=== PATIENT | male | born 1955 | race Caucasian/White ===

== ENCOUNTER → 2018-09-10 06:27 | Outpatient (CLI) | payer OTHER, SELFPAY ==
[2018-09-10 07:40] LABS: Cholesterol 219 mg/dL (200); Glucose 88 mg/dL (74-106); High Density Lipoprotein 41 mg/dL; Triglycerides 227 mg/dL; Very Low Density Lipoprotein 45 mg/dL (5-40)
== END ==
PROVIDERS: Family Provider Family Medicine; PCP Family Medicine; Referring Provider Family Medicine; Visit Provider Family Medicine
DX: Z13.1 Encounter for screening for diabetes mellitus (principal); Z13.220 Encounter for screening for lipoid disorders
CPT/HCPCS: 36415; 80061; 82947

== ENCOUNTER → 2020-08-27 06:21 | Outpatient (CLI) | payer OTHER, SELFPAY ==
[2020-08-27 08:02] LABS: Cholesterol 201 mg/dL (200); Glucose 81 mg/dL (74-106); High Density Lipoprotein 53 mg/dL; Triglycerides 164 mg/dL; Very Low Density Lipoprotein 33 mg/dL (5-40)
== END ==
PROVIDERS: PCP Family Medicine; Referring Provider Family Medicine; Visit Provider Family Medicine
DX: Z00.00 Encounter for general adult medical examination without abnormal findings (principal); Z12.5 Encounter for screening for malignant neoplasm of prostate
CPT/HCPCS: 36415; 80061; 82947; 84153; G0103

== ENCOUNTER → 2020-11-02 06:48 | Outpatient (CLI) | payer OTHER, SELFPAY ==
[2020-11-02 08:59] LABS: PSA,Total- Diagnostic 4.83 ng/mL (0.0-4.0)
== END ==
PROVIDERS: PCP Family Medicine; Referring Provider Urology; Visit Provider Urology
DX: R97.20 Elevated prostate specific antigen [PSA] (principal)
CPT/HCPCS: 36415; 84153

== ENCOUNTER → 2021-05-03 06:55 | Outpatient (CLI) | payer OTHER, SELFPAY ==
[2021-05-03 08:13] LABS: PSA,Total- Diagnostic 6.59 ng/mL (0.0-4.0)
== END ==
PROVIDERS: PCP Family Medicine; Referring Provider Urology; Visit Provider Urology
DX: R97.20 Elevated prostate specific antigen [PSA] (principal)
CPT/HCPCS: 36415; 84153

== ENCOUNTER → 2021-07-14 12:14 | Outpatient (CLI) | payer OTHER, SELFPAY ==
--- NOTE | 2021-07-14 08:00 | PROSBIL_PTH ---
PATIENT: ROBERT AMARAL LOC: [facility] U#:[id number] AGE/SX: 69/M ROOM: RE07/14/[address]: Dr. Jose L Alvarez MD : 1955 BED: DIS: SPEC #: [id number] RECD: 07/14/21 10:40 STATUS: CHANDNI PEE #: [id number] ASHELY: 07/14/21 08:[address]: Jose L Alvarez DEPT: SURGICAL PATHOLOGY RECD BY: Love Stahl ENTERED: 07/14/21 13:15 SP TYPE: PROST BX LANEY DR: Dr. Cliff Gates MD Tissues: A - PROSTATE RIGHT B - PROSTATE RIGHT C - PROSTATE RIGHT D - PROSTATE LEFT E - PROSTATE LEFT F - PROSTATE LEFT Procedures: PROSTATE BX HEADER OPERATION: Prostate biopsy PRE-OP DIAGNOSIS: R97.20 TISSUE SUBMITTED: A - Right apex, B - Right mid, C - Right base, D - Left apex, E - Left mid, F - Left base MICROSCOPIC DIAGNOSIS A. Right prostate, apex, core biopsy: Prostatic adenocarcinoma. [place] grade: 3+4=7 Number of cores involved: 2/2 Proportion of tissue involved: ~75% Perineural invasion: present, focal Greatest tumor length: 0.8 cm B. Right prostate, mid, core biopsy: Prostatic adenocarcinoma. [place] grade: 3+3=6 Number of cores involved: 2/2 Proportion of tissue involved: 30% Perineural invasion: Not identified. Greatest tumor length: 0.7 cm C. Right prostate, base, core biopsy: Prostatic adenocarcinoma. [place] grade: 3+3=6 Number of cores involved: 2/2 Proportion of tissue involved: 30% Perineural invasion: Not identified. Greatest tumor length: 0.6 cm D. Left prostate, apex, core biopsy: Prostatic tissue, negative for malignancy. E. Left prostate, mid, core biopsy: Prostatic tissue, negative for malignancy. F. Left prostate, base, core biopsy: Prostatic tissue, negative for malignancy. SJ:ang 07/15/2021 COMMENT Case has been reviewed in consultation with Dr. Donovan who concurs with the above diagnosis. IDC:AM MICROSCOPIC DESCRIPTION Slides are reviewed. GROSS DESCRIPTION A - Received is one container designated prostate, right apex. The specimen consists of two elongated fragments of light moya-white soft tissue each measuring 1.5 cm in length and 0.1 cm in diameter. The specimen is totally submitted in one cassette. B - Received is one container designated prostate, right mid. The specimen consists of two elongated fragments of light moya-white soft tissue each measuring 1.5 cm in length and 0.1 cm in diameter. The specimen is totally submitted in one cassette. C - Received is one container designated prostate, right base. The specimen consists of two elongated fragments of light moya-white soft tissue each measuring 1.5 cm in length and 0.1 cm in diameter. The specimen is totally submitted in one cassette. D - Received is one container designated prostate, left apex. The specimen consists of one elongated fragment of light moya-white soft tissue measuring 0.8 cm in length and 0.1 cm in diameter. The specimen is totally submitted in one cassette. E - Received is one container designated prostate, left mid. The specimen consists of two elongated fragments of light moya-white soft tissue each measuring 1.5 cm in length and 0.1 cm in diameter. The specimen is totally submitted in one cassette. F - Received is one container designated prostate, left base. The specimen consists of two elongated fragments of light moya-white soft tissue each measuring 1 cm in length and 0.1 cm in diameter. The specimen is totally submitted in one cassette. / AM:ang 07/14/21 TC:0 [facility]: [id number] [phone]
== END ==
PROVIDERS: PCP Family Medicine; Referring Provider Urology; Visit Provider Urology
DX: R97.20 Elevated prostate specific antigen [PSA] (principal)
CPT/HCPCS: 88305; G0416

== ENCOUNTER 2021-08-19 06:00 | Day surgery (SDC) | payer OTHER, SELFPAY ==
--- NOTE | 2021-08-15 14:00 | EKG12_ITS ---
Test Reason : PRE OP Blood Pressure : / mmHG Vent. Rate : 081 BPM Atrial Rate : 081 BPM P-R Int : 144 ms QRS Dur : 094 ms QT Int : 360 ms P-R-T Axes : 035 -15 058 degrees QTc Int : 418 ms Normal sinus rhythm Low voltage QRS Inferior infarct , age undetermined Abnormal ECG Confirmed by RK ROSS, ALBERTO ([id number]), editorial specialist EMMANUELLE ALBRIGHT ([id number]) on 08/16/2021 9:27:22 AM Referred By: Jose L Alvarez Confirmed By:ALBERTO BECKMAN MD
[2021-08-15 15:07] LABS: Hematocrit 46.7 % (40-54); Hemoglobin 15.8 g/dL (13.0-16.5); Mean Corp Hgb Conc 33.8 g/dL (32-36); Mean Corpuscular Hgb 31.7 pg (27.0-32.0); Mean Corpuscular Volume 93.6 fL (80-94); Mean Platelet Vol. 10.9 fl (6.2-12.0); Platelet Count 208 K/mm3 (150-450); RBC Distribution Width CV 12.5 % (11.6-14.6); RBC Distribution Width SD 43.1 fl (35.1-43.9); Red Blood Count 4.99 M/mm3 (4.6-6.2); White Blood Count 6.6 K/mm3 (4.4-11.0)
[2021-08-19] VITALS (7 sets, daily range): BP systolic 87–113; BP diastolic 53–86; PULSE 67–77; RESP 16–18; TEMP 36.2–36.9; O2SAT 93–96; BMI 24.3
--- NOTE | 2021-08-19 07:30 | PROST_PTH ---
PATIENT: ORBERT AMARAL [place] [facility] [place][id number] AGE/SX: 65/M ROOM: RE08/19/[address]: Dr. Jose L Alvarez MD : 1955 BED: DIS: 08/19/2021 SPEC #: [id number] RECD: 08/19/21 13:04 STATUS: CHANDNI PEE #: [id number] ASHELY: 08/19/21 07:[address]: Jose L Alvarez DEPT: SURGICAL PATHOLOGY RECD BY: Love Stahl ENTERED: 08/19/21 13:25 SP TYPE: PROSTATE OTHR DR: Dr. Cliff Gates MD Tissues: A - Soft tissues, NOS B - Lymph node of pelvis, NOS C - Lymph node of pelvis, NOS D - Prostate, NOS Procedures: Surgery Specimen Level IV Surgery Specimen Level V Surgery Specimen Level HEADER OPERATION: Lap robotic radical prostatectomy PRE-OP DIAGNOSIS: Malignant neoplasm of prostate, elevated PSA TISSUE SUBMITTED: A ? Fat over prostate, B ? Left lymph node bundle, C ? Right lymph node bundle, D - Prostate MICROSCOPIC DIAGNOSIS A. Fat over prostate: Negative for carcinoma. B. Left lymph node bundle, biopsy: One lymph node, negative for carcinoma. C. Right lymph node bundle, biopsy: One lymph node, negative for carcinoma. D. Prostate, radical prostatectomy: Prostatic adenocarcinoma. See cancer summary in the comment section. SJ:ang 08/23/2021 COMMENT PROSTATE CANCER (RADICAL) SUMMARY: Procedure: Radical Prostatectomy Prostate Size: Weight: 53.2 gm Size: 4 cm transversely, 3.5 cm anterior-posteriorly and 4.5 cm craniocaudally Histologic type: Adenocarcinoma Histologic grade: Grade group 2 ([place] score 3+4=7) Tumor Quantitation: Estimated percentage of prostate involved by tumor: ~10% Tumor size: Tumor involves both right and left lobes. Tumor in the right lobe involves apical, mid and basal portion prostate and measures approximately 1.6 x 1.1 x 0.9 cm. Tumor in the left lobe involves apical portion of the prostate and measures approximately 1.5 x 1.2 x 1.2 cm and present in discontinuous manner. Extraprostatic Extension: Not identified Urinary Bladder Neck Invasion: Not identified Seminal Vesicle Invasion: Not identified Lymphvascular Invasion: Not identified Perineural Invasion: Present Margins: Margins uninvolved by invasive carcinoma. Regional Lymph Nodes: Number of lymph nodes involved: 0 Number of lymph nodes examined: 2 Treatment Effect: No known presurgical therapy. Additional Pathologic Findings: - Focal high-grade prostatic intraepithelial neoplasia (HGPIN). - Chronic inflammation. - Benign prostatic hyperplasia. PATHOLOGIC STAGE: pT2 pN0 pMx The above summary is in compliance with [employer] [place] [employer] (CAP) Cancer Protocols Checklist and [place] Joint Committee on Cancer (AJCC), Staging Manual, 8th Ed. Please make reference to previous specimen ([id number]) right prostate, apex, mid and base with diagnosis of ?adenocarcinoma.? MICROSCOPIC DESCRIPTION Slides are reviewed. GROSS DESCRIPTION A - Received in fixative is one container labeled with the patient's name and designated fat over prostate. The specimen consists of an irregular piece of adipose tissue measuring 3.5 x 3 x 1 cm. No mass lesion is identified. Maintenance Person sections are submitted in one cassette. B - Received in fixative is one container labeled with the patient's name and designated left lymph node bundle. The specimen consists of a piece of yellow adipose tissue containing a nodule measuring 2 x 1.5 x 0.5 cm. One nodule consistent with lymph node is noted measuring 1 cm in greatest dimension. The specimen is bisected and submitted entirely in one cassette. C - Received in fixative is one container labeled with the patient's name and designated right lymph node bundle. The specimen consists of a piece of yellow adipose tissue containing a nodule measuring 3 x 1.5 x 0.5 cm. One nodule consistent with lymph node is noted measuring 1.5 cm in greatest dimension. The specimen is bisected and submitted entirely in one cassette. D - Received in fixative is one container labeled with the patient's name and designated prostate. The specimen consists of a radical prostatectomy specimen consisting of prostate and bilateral seminal vesicles weighing 53.2 gm. The prostate measures 4 cm transversely, 3.5 cm anterior-posteriorly and 4.5 cm craniocaudally. The right seminal vesicle measures 2.5 x 1.5 x 1 cm and right vas deferens measures 2 cm in length and 0.5 cm in diameter. The left seminal vesicle measures 3 x 1.5 x 1 cm and the left vas deferens measures 2 cm in length and 0.5 cm in diameter. The prostate is inked as follows: anterior margin - yellow, posterior margin - black, right lateral surface - blue, left lateral surface - green. The bilateral seminal vesicles and vas deferens are inked as follows: posterior surface - black, anterior surface right seminal vesicle and vas deferens - blue and anterior left seminal vesicle and vas deferens - green. Sections do not reveal any obvious mass lesion. Maintenance Person sections are submitted in 20 cassettes as follows: 1 - right seminal vesicle and vas deferens, 2 - left seminal vesicle and vas deferens, 3 - apical margin prostate, enface, 4 & 5 - basal margin prostate, enface, 6-10 - apical portion prostate, 11-14 - middle portion prostate, 15-20 - basal portion prostate. / SJ:rg 08/22/21 TC:0 CPT: 14933, 92074 x2, 75038
[2021-08-19] MEDS: Cefazolin 2 GM in 0.9% Normal Saline 100 ML IV (07:40)
--- NOTE | 2021-08-19 07:42 | PCM.HP.STD ---
HPI - General HPI Narrative ROBERT AMARAL, is a 65 M who presents for radical prostatectomy for treatment of prostate cancer PFSH Medical History (Updated 08/19/21 @ 07:[address] Jose L Alvarez MD) Alcohol use Cancer CPAP (continuous positive airway pressure) dependence Former smoker History of diverticulitis Hx of vertigo Prostate disease Wears glasses Home Medications bimatoprost 1 drp LEFT EYE DAILY 08/12/21 [History Last Taken Unknown] multivitamin 1 cap PO DAILY 08/12/21 [History Last Taken Unknown] timolol 1 drp LEFT EYE BID 08/12/21 [History Last Taken Unknown] ciprofloxacin HCl [Cipro] 500 mg PO BID #20 tab 08/19/21 [Rx Last Taken Unknown] docusate sodium [Colace] 100 mg PO BID #20 cap 08/19/21 [Rx Last Taken Unknown] oxycodone-acetaminophen 1 tab PO Q6H PRN 7 Days #14 tab 08/19/21 [Rx Last Taken Unknown] Allergy/AdvReac Type Severity Reaction Status Date / Time Penicillins Allergy PT UNSURE Verified 08/12/21 09:10 OF REACTION Surgical History (Updated 08/12/21 @ 09:19 by Eliane Black) Hx of colonoscopy Hx of inguinal hernia repair Hx of inguinal hernia repair Social History Smoking Status: Former smoker Vital Signs Vital Signs Vital Signs: 08/19/21 06:25 Temperature 98.0 F Temperature Source Temporal Pulse Rate 68 Respiratory Rate 18 Respiratory Pattern Normal Blood Pressure 113/86 H Blood Pressure Mean 95 Blood Pressure Source Monitor Blood Pressure Position Sitting Blood Pressure Location Left Arm Pulse Ox 96 Oxygen Delivery Method Room Air Weight Weight: 76.9 kg Body Mass Index (BMI) 24.3 Results Lab / Micro Data Result Diagrams: 08/15/21 14:23
--- NOTE | 2021-08-19 07:43 | PCM.DC ---
Discharge Instructions Diet Discharge Diet: No restrictions Activity Discharge Activity: May Not Drive (while taking narcotic pain medications.) May resume sexual activity in: 6-8 weeks Lifting Restrictions: no lifting Dressing / Incision Call your doctor if your incision/area has: Continuous Slow Oozing, Sudden Increased Bleeding, Increased Pain/ Swelling, Increased Redness, Foul Smelling Discharge and Swelling at the incision site Call your doctor if you observe: Fever of 101 or Higher Cleanse incision/area with: Soap & Water and Keep Dressing Clean & Dry Catheter: [place] to leg bag and [place] to large bag Drain: Bradford Follow Up Care Please Follow Up With: Jose L Alvarez MD When: call for appt. Test Results: Test results from this visit will be discussed in further detail at your follow-up appointment, if applicable. Discharge Plan Admission Primary Reason for Your Visit: Radical Prostatectomy Attending Provider: Jose L Alvarez Primary Care Provider: Cliff Gates Instructions Patient Instructions: Radical Prostatectomy Dc Discharge Orders/Prescriptions Prescriptions: New ciprofloxacin HCl [Cipro] 500 mg tablet 500 mg PO BID Qty: 20 RF: 0 docusate sodium [Colace] 100 mg capsule 100 mg PO BID Qty: 20 RF: 0 oxycodone-acetaminophen 5-300 mg tablet 1 tab PO Q6H PRN (Reason: pain) 7 Days Qty: 14 RF: 0 Continued bimatoprost 0.03 % Drops 1 drp LEFT EYE DAILY RF: 0 timolol 0.25 % Drops 1 drp LEFT EYE BID RF: 0 multivitamin Capsule 1 cap PO DAILY RF: 0 Referrals / Follow Up: Jose L Alvarez MD [STAFF PHYSICIAN] - Cliff Gates MD [Primary Care Provider] - Disposition Disposition (needs filled in before D/C Order can be placed): Home, Self Care
[2021-08-19] MEDS: Bupivacaine Mpf 0.5% 30 ML VIAL (11:44)
--- NOTE | 2021-08-19 11:55 | PCM.OPRPT ---
Report of Operation Date of Procedure: 08/19/21 Pre-Operative Diagnosis: prostate cancer Post-Operative Diagnosis: same Surgery/Procedure Performed:: laparoscopic robotic assisted radical prostatectomy and bilateral pelvic lymph node dissection Description of Surgical Findings:: Patient presented to the hospital for treatment of his prostate cancer with radical prostatectomy. In the preoperative setting we discussed the options of management for his prostate cancer including active surveillance, radiation treatments, radioactive seeds, and radical robotic prostatectomy. We discussed the side effects of surgery including the potential to lose erections. We discussed the potential to have bladder control problems with stress incontinence which can be temporary or permanent. We discussed the risk of the surgery including the risk of general anesthetic, risk of bleeding, risk of infection, and risk of formation of hernia either incisional hernia or inguinal hernia. After long discussion with the patient the preoperative setting and also reviewed this in the preop area patient signed the consent form and we proceeded with a radical prostatectomy. Patient was taken back to the operating room he was identified, time out procedure was performed and he was placed supine on the table he underwent general anesthesia with intubation. The abdomen was shaved prepped and draped in usual sterile fashion as well as the penis and testicles. A 16 Cymraes catheter was placed into the bladder with clear return of urine. I then made an incision in the umbilicus and dissected down to the fascia advance a Veress needle into the peritoneal cavity and insufflated the peritoneal cavity with CO2 gas. I then placed a 12 mm trocar above the umbilicus. I then visualized the placement of the rest of the trochars, I placed a right arm robotic trocar, and air seal trocar, a suction port 5 mm trocar. And on the left side I placed 2 robotic arms. Once all the trochars were in placed the patient was put in steep Trendelenburg. And the robot was docked the arms were docked and then I placed the 0 degree camera through the robotic arm and also used a 30 degree camera during certain parts of the case. I used scissors in the right arm, prograsp in the third arm, and a bipolar in the second arm. Initial dissection was to free the sigmoid colon off the lateral wall this was done by meticulously dissecting off the peritoneum and the sigmoid colon off the left lateral wall. This then allowed the prograsp to retract the sigmoid colon out of the pelvis. I then went below the bladder and identified the vas deferens incised the peritoneum over the vas deferens and traced the vas deferens below the bladder to the prostate and identified the right and left vasa deferens. Below behind the vas deferens then the seminal vesicles were identified. I then dissected the seminal vesicle free using pinpoint electrocautery and then we identified the other seminal vesicle and then dissected this using pinpoint electrocautery I then elevated the vas deferens and several vesicles off the prostate and was able to sweep the Denonvilliers' fascia off the prostate posteriorly all the way up to the apex of the prostate. Working laterally I made sure I went as lateral as possible to sweep the Denonilliers' fascia off the posterior aspect of the prostate and worked my way back, I then transected the vas deferens and the left and right side the seminal vesicles were then dissected free. And then I pulled out of the pelvis. At this point the bladder was dropped creating the space of Retzius with the bladder on traction with the fourth arm. Using electrocautery I dissected in the anterior peritoneal fascia and then created the space of Retzius dissecting towards the prostate. The pelvic lymph node dissection was then performed both on the left and the right pelvic lymph nodes the nodes that were taken on the right side extended from the right iliac artery lateral pelvic sidewall up to the junction of the artery and the lymph nodes and down to the obturator nerve and then also below the impregnating tank operator nerve all the lymph nodes were removed during to remove those lymph nodes we used clips and electrocautery to control small blood vessels and also the control lymphatic. I then went to the left side and again did an extensive lymph node dissection starting of the left iliac artery extending the left iliac vein on the lateral sidewall down to the obturator nerve and the left side beyond the impregnating tank operator nerve down further behind it cleaning out all the lymphatic tissue all this tissue was sent off as a specimen we use clips and electrocautery during the dissection. At the end we cleaned out all the lymphatic tissue on the right pelvic wall and no lymphatic tissue in the left pelvic wall. The prostate was then cleaned of the fat over the prostate and the fourth arm was used to retract the bladder and place traction. I then identified the endopelvic fascia that was overlying the prostate on the right side I incised endopelvic fascia and wwept the levator muscles off the prostate all the way to the apex on the right side, I then worked my way anterior to the prostate then transected to the puboprostatic ligament and the underlying dorsal vein complex was not injured. I then went to the other side and identified the endopelvic fascia in the left side incised in a fashion the left side and swept the levator muscles off the prostate on the left side all the way up to the apex the puboprostatic ligament on the left side was then dissected and transected I then freed up the fascia overlying the dorsal vein complex. I then used the prograsp to encircled the dorsal vein complex with the prograsp and then switched over to the right and left needle driver manager and suture ligated the dorsal vein complex above the prograsp. The prograsp was then placed back in the bladder and put back on traction I then identified the junction between the bladder and the prostate and dissected down between the bladder and the prostate untilI came across the catheter we then dissected posteriorly to the bladder and prostate to free the prostate and the bladder off each other and the muscles between the bladder and the prostate was then cauterized to free up the bladder. I then went on top of the prostate and identified the endopelvic fascia on top of the prostate this was incised all the way to the apex and then we swept the endopelvic fascia off the prostate laterally and then identified the plane between endopelvic fascia and the prosthetic pseudocapsule and swept the fascia laterally until reaching the course of the neurovascular bundles and then released the neurovascular bundles off the prostate laterally all the way back in a retrograde fashion back to the junction of the pedicles then the prostate was placed on traction with the fourth arm pulling the prostate laterally identified the pedicle to the prostate between the seminal vesicles and the and the neurovascular bundle and this was taken using sequential small hemolocks. After the pedicle was taken the I then dissected underneath the prostate sweeping the neurovascular bundle off the prostate we able to follow the nice smooth plane between the neurovascular bundle and the pseudocapsule all the way to the apex once this was identified we swept this up all the way up to the apex and there was perfect nerve sparing on the right side. Then went to the left side the prostate identified the endopelvic fascia over the left side of the prostate I incised the endopelvic fascia all the way to the apex and then swept this off laterally I then released the neurovascular bundles on the left side of the prostate sweeping him off the prostate laterally I then elevated the prostate up up with the prostate and traction identified the pedicle to the prostate on the left side and then the pedicles taken with sequential Hem-o-laurent clips I then was able to dissected the neurovascular bundle off the left posterior aspect the prostate this was a perfect dissection all the way up on the left side following the pseudocapsule all the way up the left side until we reached the apex of the prostate. After the both the neurovascular bundles has been swept off the posterior to the prostate I then went above and transected the dorsal vein complex there was minimal to no bleeding but then dissected down to the urethra and circumfencial dissected around the urethra I then switched the right and left arm with the needle drivers and I suture-ligated the dorsal vein complex again just to ensure that there was no bleeding from the dorsal vein complex. I then transected through the urethra with scissors and the prostate was then freed and released off the prostate bed and put an Endo Catch bag. At this point the bladder neck was reconstructed and then an anastomosis was performed between the prostate and the bladder with a 3 oh V-Loc stitch in a running fashion starting from the bladder neck at the 6 o'clock position working to the 12 o'clock position with continuous stitches to complete a perfect anastomosis between the bladder and the prostate. I then placed a new catheter into the bladder, an 18 Cymraes [place] tip catheter flushed the bladder and there was no leakage from the anastomosis I put 10 cc in the balloon and pulled it up pulled back gently. I then ensured that there was no bleeding from the dorsal vein complex no bleeding from the neurovascular bundles FloSeal was placed as necessary once hemostasis was ensured and adequate then I placed the bladder back in position in the pelvis the prostate was exchanged to the camera port I closed the air seal port with a 10 12 Luis Miguel Dailey stitch. And the extracted the prostate through the umbilicus. The robot was undocked all the ports were removed under direct visualization then closed the extraction site with 0 Vicryl with a CT1 needle once the extraction site was closed. I then closed all the incision with subcuticular stitches with 4-0 Monocryl and then bandages were placed on the incisions catheter was flushed to make sure it was draining well there was no clots and it was crystal clear patient's anesthetic was reversed he was extubated and taken back to the PACU in stable condition all the needles and sponges and instruments were accounted for. Blood loss was minimal and the drain was a 18 Cymraes Esparza catheter. No other surgical drain was left. I was present during the entire case. Surgeon: tone Type of Anesthesia: General Drains: 20 fr esparza Admit VTE Documentation VTE Present on Admission: No VTE Mechan Device Prophylaxis: SCD's VTE Pharm Prophylaxis ordered?: No
--- NOTE | 2021-08-19 13:23 | SUR.PHASEII ---
RN CALLED DR. PÉREZ TO CLARIFY TORADOL ORDER. IM CHANGED TO IV.
[2021-08-19] MEDS: Ketorolac 30 MG/ML Syringe IV (13:45)
--- NOTE | 2021-08-19 15:10 | SUR.PHASEII ---
esparza connected to leg bag. teaching done with pt. and on leg bag vs. large bag for home use.
== END 2021-08-19 15:22 | disposition home or self-care (01) ==
LOC: SDC 06:00 → AC 06:01
PROVIDERS: Anesthesiology; PCP Family Medicine; Referring Provider Urology; Visit Provider Urology
PROC: 0VT04ZZ Resection of Prostate, Percutaneous Endoscopic Approach (ICD-10-PCS; CPT 55866; principal; 2021-08-19 07:10)
DX: C61 Malignant neoplasm of prostate (principal); Z87.891 Personal history of nicotine dependence
CPT/HCPCS: 00865; 38571; 55866; S2900; 36415; 85027; 86850; 86900; 86901; 88305; 88307; 88309; 93005; J7120; A4216; J2405

== ENCOUNTER 2021-12-20 07:42 | Outpatient (CLI) | payer MEDICARE, OTHER, SELFPAY ==
[2021-12-20 08:46] LABS: PSA,Total- Diagnostic < 0.01 ng/mL (0.0-4.0)
== END 2021-12-20 23:59 | disposition home or self-care (01) ==
LOC: LAB 07:46
PROVIDERS: PCP Family Medicine; Referring Provider Urology; Visit Provider Urology
DX: C61 Malignant neoplasm of prostate (principal)
CPT/HCPCS: 36415; 84153

== ENCOUNTER → 2022-06-16 | Outpatient (CLI) | payer MEDICARE, OTHER, SELFPAY ==
[2022-06-16 11:42] LABS: PSA,Total- Diagnostic < 0.01 ng/mL (0.0-4.0)
== END | disposition home or self-care (01) ==
LOC: LAB 09:22
PROVIDERS: PCP Family Medicine; Visit Provider Urology
DX: C61 Malignant neoplasm of prostate (principal)
CPT/HCPCS: 36415; 84153

== ENCOUNTER → 2022-12-21 | Outpatient (CLI) | payer MEDICARE, OTHER, SELFPAY ==
[2022-12-21 09:04] LABS: PSA,Total- Diagnostic < 0.01 ng/mL (0.0-4.0)
== END | disposition home or self-care (01) ==
LOC: LAB 07:51
PROVIDERS: PCP Internal Medicine; Referring Provider Urology; Visit Provider Urology
DX: C61 Malignant neoplasm of prostate (principal)
CPT/HCPCS: 36415; 84153

== ENCOUNTER → 2023-06-22 | Outpatient (CLI) | payer MEDICARE, OTHER, SELFPAY ==
[2023-06-22 10:42] LABS: PSA,Total- Diagnostic < 0.01 ng/mL (0.0-4.0)
== END | disposition home or self-care (01) ==
LOC: LAB 08:21
PROVIDERS: PCP Internal Medicine; Referring Provider Registered Nurse; Visit Provider Registered Nurse
DX: C61 Malignant neoplasm of prostate (principal)
CPT/HCPCS: 36415; 84153

== ENCOUNTER → 2023-12-24 | Outpatient (CLI) | payer MEDICARE, OTHER, SELFPAY ==
--- OUTSIDE RECORDS SUMMARY | 2023-12-24 08:28 | XMS RPT_ITS | CCD ---
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 Name Role Phone Gary Víctor Wooten Primary Care Provider Unavailguillermo Riley MD, Luiza Eugene Primary Care Provider EVERETT ESCALANTE Attending UnavailLUIZA Kaufman Primary Care Unavailable EVERETT ESCALANTE Attending UnavailJAMIE Stock Referring Unavailable LUIZA RILEY Primary Care Unavailable EVERETT ESCALANTE Referring UnavailLUIZA Kaufman Primary Care Unavailable MIC HODGE Admitting Unavailable ROS JOSEPH Attending Unavailable JAMIE MC Attending Unavailable JAMIE MC Referring Unavailable LUIZA RILEY Primary Care Unavailable JAMIE MC Attending Unavailable JAMIE MC Referring Unavailable ULIZA RILEY Primary Care Unavailable JAMIE MC Attending Unavailable JAMIE MC Referring Unavailable LUIZA RILEY Primary Care Unavailable JAMIE MC Attending Unavailable LUIZA RILEY Referring Unavailable LUIZA RILEY Primary Care Unavailable Allergies Allergy Classification Reported Allergen(s) Allergy Type Date of Onset Reaction(s) Facility (6 sources) Penicillins; Translations: [PENICILLINS] Propensity to adverse reactions to drug 02-15-2011 Unknown [facility] Medications Completed/Discontinued Medications Medication Drug Class(es) Dates Sig (Normalized) Sig (Original) bimatoprost 0.3 mg/ml ophthalmic solution (5 sources) Prostaglandin Analog Start: 11-11-2020 take 1 drop(s) into the eye(s) once daily bimatoprost (LUMIGAN) 0.03 % ophthalmic drops INSTILL 1 DROP INTO BOTH EYES EVERY NIGHT DIRECTED 0 11/11/2020 Active Problems Active Problems Problem Classification Problem Date Documented Da te Episodic/Chronic Esophageal disorders (3 sources) 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; Translations: [Gastro-esophageal reflux disease without esophagitis] Onset: 02-27-2023 02-27-2023 Chronic Esophageal disorders (2 sources) Diverticulum of esophagus, acquired; Translations: [Zenkers diverticulum] Onset: 04-10-2023 Episodic Glaucoma (5 sources) Glaucoma; Translations: [Other specified glaucoma] Onset: 02-28-2021 02-28-2021 Chronic Other gastrointestinal disorders (3 sources) Dysphagia; Translations: [Dysphagia, unspecified] Episodic Residual codes; unclassified (5 sources) Obstructive sleep apnea syndrome; Translations: [Obstructive sleep apnea (adult) (pediatric)] Onset: 02-28-2021 02-28-2021 Chronic Unclassified (1 source) Luther's esophagus with esophagitis; Translations: [Luther's esophagus with esophagitis] Onset: 04-10-2023 Past or Other Problems Problem Classification Problem Date Documented Da te Episodic/Chronic Abdominal hernia (6 sources) Inguinal hernia; Translations: [Unilateral inguinal hernia, without obstruction or gangrene, not specified as recurrent] Onset: 04-27-2011 04-27-2011 Episodic Other gastrointestinal disorders (1 source) Dysphagia, unspecified; Translations: [Dysphagia, unspecified type] Onset: 04-10-2023 Episodic Results Test Name Value Interpretation Reference Range Facil ity Vital Signs Date Time Vital Sign Value Performing Clinician Faci lity 03-06-2023 16:09-0400 Body temperature 98.01 [degF] Jamie Mc MD Work Phone: [facility] 03-06-2023 16:09-0400 Diastolic blood pressure 82 mm[Hg] Jamie Mc MD Work Phone: [facility] 03-06-2023 16:09-0400 Heart rate 83 /min Jamie Mc MD Work Phone: [facility] 03-06-2023 16:09-0400 SaO2% (BldA) [Mass fraction] 95 % Jamie Mc MD Work Phone: [facility] 03-06-2023 16:09-0400 Systolic blood pressure 116 mm[Hg] Jamie Mc MD Work Phone: [facility] 02-27-2023 14:07-0400 Diastolic blood pressure 80 mm[Hg] [address] 02-27-2023 14:07-0400 Heart rate 66 /min [address] 02-27-2023 14:07-0400 Respiratory rate 16 /min [address] 02-27-2023 14:07-0400 SaO2% (BldA) [Mass fraction] 96 % [address] 02-27-2023 14:07-0400 Systolic blood pressure 134 mm[Hg] [address] 02-27-2023 11:45-0400 Body temperature 98.01 [degF] [address] 02-27-2023 11:45-0400 Body weight 82.[address] 01-25-2023 10:13-0400 Body height 175.3 cm Jamie Mc MD Work Phone: [facility] 01-25-2023 10:13-0400 Body temperature 97.3 [degF] Jamie Mc MD Work Phone: [facility] 01-25-2023 10:13-0400 Body weight 82.1 kg Jamie Mc MD Work Phone: [facility] 01-25-2023 10:13-0400 Diastolic blood pressure 80 mm[Hg] Jamie Mc MD Work Phone: [facility] 01-25-2023 10:13-0400 Heart rate 65 /min Jamie Mc MD Work Phone: [facility] 01-25-2023 10:13-0400 SaO2% (BldA) [Mass fraction] 99 % Jamie Mc MD Work Phone: [facility] 01-25-2023 10:13-0400 Systolic blood pressure 128 mm[Hg] Jamie Mc MD Work Phone: [facility] Encounters Encounter Date Encounter Type Care Provider Facility Start: 08-08-2023 End: 08-08-2023 ambulatory EVERETT ESCALANTE Facility:[facility] Start: 07-16-2023 End: 07-17-2023 Evaluation and management of inpatient EVERETT ESCALANTE Facility:[facility] Start: 07-09-2023 Telephone encounter Balbina Lyon RN G astroenterology Procedures Date Procedure Procedure Detail Performing Clinician Start: 02-27-2023 Level iv surg pathology gross&microscopic exam Jamie Mc MD Work Phone: Start: 02-27-2023 Esophagogastroduodenoscopy transoral diagnostic Jamie Mc MD Work Phone: Start: 05-17-2021 Colonoscopy Jamie Mc MD Work Phone: Start: 01-26-2021 PT ED PATIENT INFORMATION Jamie treviño Work Phone: Start: 10-29-2006 Colonoscopy Jamie Mc Plan of Treatment Date Care Activity Detail Author Start: 07-16-2026 Diabetes Screening Diabetes Screening [facility] Start: 05-17-2026 Colonoscopy COLONOSCOPY [facility] Start: 05-17-2026 COLORECTAL CANCER SCREENING COLORECTAL CANCER SCREENING [facility] Start: 02-29-2024 DIABETES SCREEN DIABETES SCREEN [facility] Start: 06-29-2023 Influenza vaccination [facility] Start: 04-03-2023 Pneumococcal Vaccine: 65+ (2 - PCV) Pneumococcal Vaccine: 65+ (2 - PCV) [facility] Start: 12-07-2022 COVID-19 VACCINE (5 - Additional dose for Kady series) COVID-19 VACCINE (5 - Additional dose for Kady series) [facility] Start: 10-29-2022 ADVANCE DIRECTIVE DISCUSSION ADVANCE DIRECTIVE DISCUSSION [facility] Start: 10-29-2022 DEPRESSION ASSESSMENT DEPRESSION ASSESSMENT [facility] Start: 2021 PNEUMOCOCCAL: 65+ (1 - PCV) PNEUMOCOCCAL: 65+ (1 - PCV) [facility] Start: 06-29-2020 Influenza vaccination INFLUENZA (#1) [facility] Start: 11-02-2017 Shingrix Vaccine (2 of 3) Shingrix Vaccine (2 of 3) [facility] Start: 2016 RSV Vaccine (1 - 1-dose 60+ series) RSV Vaccine (1 - 1-dose 60+ series) [facility] Start: 04-27-2014 DIABETES SCREEN DIABETES SCREEN [facility] Start: 2011 PROSTATE CANCER SCREENING DISCUSSION PROSTATE CANCER SCREENING DISCUSSION [facility] Start: 10-29-2011 Screening for malignant neoplasm of colon [facility] Start: 2006 Screening for malignant neoplasm of colon [facility] Start: 2006 SHINGRIX VACCINE (1 of 2) SHINGRIX VACCINE (1 of 2) [facility] Start: 2001 COLOGUARD (FIT-DNA) COLOGUARD (FIT-DNA) [facility] Start: [address] COLONOGRAPHY [facility] Start: 2001 FECAL OCCULT BLOOD FECAL OCCULT BLOOD [facility] Start: 2001 SIGMOIDOSCOPY SIGMOIDOSCOPY [facility] Start: 1991 Lipid 1996 panel - Serum or Plasma Lipid Screening [facility] Start: 1991 LIPID SCREEN LIPID SCREEN [facility] Start: 1975 Urine microalbumin profile [facility] Start: 1974 HEPATITIS C SCREENING HEPATITIS C SCREENING [facility] Start: 1974 HIV SCREENING HIV SCREENING [facility] Start: 1968 Adult depression screening assessment DEPRESSION SCREENING [facility] End: 01-26-2024 EGD DIAGNOSTIC EGD DIAGNOSTIC Endoscopy Routine Dysphagia, unspecified type 1 Occurrences starting 01/25/2023 until 01/26/2024 [facility] Work Phone: Immunizations Immunization Date Immunization Notes Care Provider Lucy claire 08-09-2022 influenza virus vacc ine, unspecified formulation Wstr Pr02 [facility] Payers Date Payer Category Payer Medicare MEDICARE MEDICAR E A AND B [id number] 2021-Present [phone] [address] [address] [place] [address] Medicare [id number] 2021 Medicare [id number] 2021 Medicare [id number] 2021 Unknown [employer] [place] [employer] [place] MEDICARE SUPPLEMENT [id number] 2021-Present [phone] [id number] [place] [address] [employer] [id number] 2020 Private Health Insurance MARIA FERNANDA ALEJANDRO OAP [id number] 2020-Present PPO [id number] Social History Date Type Detail Facility Start: 05-06-2011 End: 01-25-2023 Tobacco smoking status NHIS Never smoker [facility] Start: 05-06-2011 End: 02-27-2023 Alcohol intake Current drinker of alcohol (finding) [facility] Start: 1955 Sex Assigned At Not on file [facility] Start: 01-25-2023 Tobacco use and exposure Smoke less tobacco non-user [facility] Start: 05-17-2021 [facility] Start: 01-25-2023 End: 04-10-2023 History of Social function [facility] Start: 01-25-2023 End: 04-10-2023 Tobacco use panel [facility] National Score (1-10 0), lower number is lower risk 69 [facility] Medical Equipment Procedure Code Equipment Code Equipment Origin al Text Equipment Identifier Dates Mesh Perfix Plug Small - [id number] Start: 05-04-2011 Clinical Notes 01-25-2023 to 08-11-2023 Telephone Encounter - Balbina Lyon RN - 07/09/2023 4:30 PM EDTTelephone Encounter - Gabby Galicia RN - 04/12/2023 4:24 PM Nayeli Mc MD - 03/06/2023 4:00 PM EDT Note Date & Type Note Facility 08-11-2023 Note HNO ID: [id number] Author: Note, Interface Service: ? Author Type: ? Type: Progress Notes Filed: 08/11/2023 1:55 AM Note Text: Epic Scheduled Downtime: 08/11/2023 1:00:00 AM to 08/11/2023 1:28:00 AM [facility] 08-08-2023 Note HNO ID: [id number] Author: Everett Escalante MD Service: ? Author Type: Physician Type: Progress Notes Filed: 08/08/2023 11:37 AM Note Text: VIRTUAL VISIT PROGRESS NOTE This is a virtual visit using [employer] Zoom Video Visit. It required patient-provider interaction for the medical decision making as documented below. I have communicated my name and active licensure. The patient's identity and physical location were verified at the time of this visit. Either the patient or their legal service representative has been informed of the risks and benefits of -- and alternatives to -- treatment through a remote evaluation and consents to proceed with the evaluation remotely. HISTORY OF PRESENT ILLNESS: Robert Salmon is a 67 year old male seen for evaluation and follow up of Zenker's diverticulum. Doing well since procedure. Mild discomfort for a few days following surgery. Referred by Dr. Jamie Brewster Symptom Score. Post-Procedure Weight loss (over one year) - 0 none 0; 1-10 lbs (0.45-4.54 kg) 1; 11-20 lbs (4.99-9.07 kg) 2;>20 lbs (>9.07 kg) 3 Dysphagia - 0 none 0; solids 1; semi-solids 2; solid and liquids 3 Oropharyngeal Symptoms - 0 Regurgitation none 0; occasional 1; daily 2 Halitosis - 0 none 0; occasional 1; daily 2 Respiratory Symptoms - 0 Cough none 0; occasional 1; daily 2 Hoarseness - 0 none 0; occasional 1; daily 2 Pneumonia - 0 No 0; Yes 2 TOTAL SCORE: 0/16 Size of Zenkers diverticulum - 3.7 cm Duration of symptoms - 1 Year Globus sensation - no Pre-Procedure Score: 5/16 Post-Procedure Score: 0/16 PRIOR PERTINENT TESTING: Z-POEM 07/16/2023 Findings: The examined duodenum was normal. The entire examined stomach was normal. The Z-line was irregular. A non-bleeding Zenkers diverticulum with a large opening and no stigmata of recent bleeding was found at the cricopharyngeus. esophageal OS was very tight. Z-POEM: A total of 15 mL of methylene blue stained Normal saline was injected with adequate lift of the mucosa over the septum/cricopharyngeus muscularis propria. A Linear incision into the submucosa was performed with a TT needle-knife. The submucosa was then dissected from on either sides of the cricopharyngeus muscle with TT electrocautery knife followed by cricopharyngeal myotomy. To close a mucosal incision, four hemostatic clips were successfully placed (MR conditional). There was no bleeding at the end of the procedure. Impression: - Z-line irregular. - Zenkers Diverticulum at the cricopharyngeus s/p Z-POEM. - Clips (MR conditional) were placed. - Endoscopic submucosal dissection was performed. LABS: HISTORY REVIEWED (electronic chart updated): PAST MEDICAL HISTORY Diagnosis Date Dysphagia Glaucoma of left eye Inguinal hernia Prostate cancer (HCC) Sleep apnea PAST SURGICAL HISTORY Procedure Laterality Date COLONOSCOPY FLX DX W/COLLJ SPEC WHEN PFRMD 05/17/2021 EGD 02/27/2023 HERNIA REPAIR HX RADICAL PROSTATECTOMY 2020 Dr. Alvarez REPAIR ING HERNIA,5+Y/O,REDUCIBL Left 03/14/2021 RPR 1ST INGUN HRNA AGE 5 YRS/> REDUCIBLE 05/04/2011 SKIN BIOPSY HX FAMILY HISTORY Problem Relation Age of Onset Osteoporosis Mother other (osteoarthritis) Mother Colon Cancer Father Social History Tobacco Use Smoking status: Never Smokeless tobacco: Never Vaping Use Vaping Use: Never used Substance Use Topics Alcohol use: Yes Alcohol/week: 1.0 - 2.0 standard drink of alcohol Types: 1 - 2 Cans of beer per week Comment: daily Drug use: No Current Outpatient Medications Medication Sig bimatoprost (LUMIGAN) 0.03 % ophthalmic drops INSTILL 1 DROP INTO BOTH EYES EVERY NIGHT DIRECTED timoloL maleate (TIMOPTIC) 0.25 % ophthalmic solution multivitamin ORAL tablet Take 1 tablet by mouth. No current facility-administered medications for this visit. ALLERGIES Allergen Reactions Penicillins Unknown REVIEW OF SYSTEMS: GENERAL: feeling well without fatigue, no recent change in weight GI: normal appetite, tolerating PO well, BMs normal, and no abdominal pain Answers submitted by the patient for this visit: Review of Systems Gastroenterology (Submitted on 08/01/2023) Fever: No Chills: No Night Sweats: No Unitentional Weight Change: No A Cough: No Difficulty Breathing: No Belly pain: No A feeling of fullness or have belly pain after eating: No Food getting stuck in your throat or chest after eating: No Nausea - that is, a feeling like you could vomit: No Regurgitation - that is, food or liquid coming back up into your throat or mouth without vomiting, or feel burning behind your breast bone: No Loss of appetite: No To throw up or vomit: No Blood in your stools: No Black tarry stools: No Loose or watery stools: No The feeling like you need to empty your bowels right away - that is, feel as if you would have an accident: No Bowel incontinence - that is, have an accident be (more content not included)... 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 Pager #: [phone] [facility] 07-16-2023 Note Q3 Patient Name: Robert Salmon Procedure Date: 07/16/2023 8:47 AM Date of : 1955 Admit Type: Outpatient Age: 67 Gender: Male Note Status: Finalized Attending MD: Everett Escalante MD Procedure: Upper GI endoscopy Indications: Dysphagia Providers: Everett Escalante MD Patient Profile: This is a 67 year old male. Refer to note in patient chart for documentation of history and physical. Referring Physician: Medicines: General Anesthesia Complications: No immediate complications. Requesting Provider: Procedure: Pre-Anesthesia Assessment: - Prior to the procedure, a History and Physical was performed, and patient medications and allergies were reviewed. The patient's tolerance of previous anesthesia was also reviewed. The risks and benefits of the procedure and the sedation options and risks were discussed with the patient. All questions were answered, and informed consent was obtained. Prior Anticoagulants: The patient has taken no anticoagulant or antiplatelet agents. ASA Grade Assessment: II - A patient with mild systemic disease. After reviewing the risks and benefits, the patient was deemed in satisfactory condition to undergo the procedure. After obtaining informed consent, the endoscope was passed under direct vision. Throughout the procedure, the patient's blood pressure, pulse, and oxygen saturations were monitored continuously. The Endoscope was introduced through the right nostril, and advanced to the second part of duodenum. The upper GI endoscopy was accomplished without difficulty. The patient tolerated the procedure well. Moderate Sedation: MAC anesthesia was administered by the anesthesia team. Findings: The examined duodenum was normal. The entire examined stomach was normal. A guide wire was inserted into the duodenum and the endoscope was removed. A 10 Fr nasojejunal tube was advanced over the guide wire into the duodenum. Corpak secured to nose with a bridle. The examined esophagus was normal. Clips seen at cricopharyngeus. Impression: - EGD with Corpak Feeding tube placement was successfully performed. Estimated Blood Loss: Estimated blood loss was minimal. Recommendation: - [facility] the [facility]. - NPO today. - Patient has a contact number available for emergencies. The signs and symptoms of potential delayed complications were discussed with the patient. Return to normal activities tomorrow. Written discharge instructions were provided to the patient. Procedure Code(s): --- Professional --- 48253 CPT copyright 2020 [employer]. All rights reserved. Attending Participation: I personally performed the entire procedure. Scope In: 8:50:21 AM Scope Out: 9:01:26 AM MD Everett Cash MD 07/16/2023 9:06:29 AM This report has been signed electronically by Everett Escalante MD Number of Addenda: 0 Note Initiated On: 07/16/2023 8:47 AM [facility] 07-16-2023 Note HNO ID: [id number] Author: Lissett John APRN.DIRECTOR OF TECHNOLOGY Service: ? Author Type: Nurse Research Phlebotomist Type: Anesthesia Procedure Notes Filed: 07/16/2023 8:04 AM Note Text: ANESTHESIOLOGY PROCEDURE NOTE Airway General Information Procedure Start Time/Medication Administration: 07/16/2023 7:55 AM Patient location during procedure: OR Timeout Performed Pre-procedure: timeout performed Consent Obtained: Yes Patient identity confirmed: arm band Staffing Anesthesiologist: Mic Hodge MD DIRECTOR OF TECHNOLOGY: Lissett John APRN.DIRECTOR OF TECHNOLOGY Performed by: DIRECTOR OF TECHNOLOGY Indications and Patient Condition Indications for airway management: anesthesia Preoxygenated: yes anesthesia circuit Patient position: sniffing Method: modified rapid sequence Cricoid Pressure: Yes Manual In-Line Stabilization: No Difficult Mask: No Final Airway Details Final airway type: endotracheal airway Final Endotracheal Airway: ETT Cuffed: yes Successful intubation technique: direct laryngoscopy Endotracheal tube insertion site: oral Blade: Mcekon Blade size: #3 ETT size (mm): 7.5 Measured from: lips Measurement (cm): 24 Placement verified by: capnometry Cormack-Lehane Classification: grade IIb - view of arytenoids or posterior of glottis only Number of attempts at approach: 1 Failed airway: no Unrecognized esophageal intubation: no Airway not difficult SIGNATURE: Lissett John APRN.DIRECTOR OF TECHNOLOGY PATIENT NAME: Robert Salmon DATE: July 16, 2023 TIME: 8:03 AM CSN: [id number] [facility] 07-16-2023 Note Q3 Patient Name: Robert Salmon Procedure Date: 07/16/2023 7:13 AM Date of : 1955 Admit Type: Outpatient Age: 67 Gender: Male Note Status: Barrel Plater Override Attending MD: Everett Escalante MD Procedure: Upper GI endoscopy Indications: Dysphagia. Zenkers diverticulum for Z-POEM. Providers: Everett Escalante MD Patient Profile: This is a 67 year old male. Refer to note in patient chart for documentation of history and physical. Referring Physician: Jamie Mc MD (Referring MD) Medicines: General Anesthesia, Cleocin 600 mg IV Complications: No immediate complications. Estimated blood loss: Minimal. Requesting Provider: Procedure: Pre-Anesthesia Assessment: - Prior to the procedure, a History and Physical was performed, and patient medications and allergies were reviewed. The patient's tolerance of previous anesthesia was also reviewed. The risks and benefits of the procedure and the sedation options and risks were discussed with the patient. All questions were answered, and informed consent was obtained. Prior Anticoagulants: The patient has taken no anticoagulant or antiplatelet agents. ASA Grade Assessment: II - A patient with mild systemic disease. After reviewing the risks and benefits, the patient was deemed in satisfactory condition to undergo the procedure. After obtaining informed consent, the endoscope was passed under direct vision. Throughout the procedure, the patient's blood pressure, pulse, and oxygen saturations were monitored continuously. The Endoscope was introduced through the mouth, and advanced to the second part of duodenum. The upper GI endoscopy was accomplished without difficulty. The patient tolerated the procedure well. Moderate Sedation: MAC anesthesia was administered by the anesthesia team. Findings: The examined duodenum was normal. The entire examined stomach was normal. The Z-line was irregular. A non-bleeding Zenkers diverticulum with a large opening and no stigmata of recent bleeding was found at the cricopharyngeus. esophageal OS was very tight. Z-POEM: A total of 15 mL of methylene blue stained Normal saline was injected with adequate lift of the mucosa over the septum/cricopharyngeus muscularis propria. A Linear incision into the submucosa was performed with a TT needle-knife. The submucosa was then dissected from on either sides of the cricopharyngeus muscle with TT electrocautery knife followed by cricopharyngeal myotomy. To close a mucosal incision, four hemostatic clips were successfully placed (MR conditional). There was no bleeding at the end of the procedure. Impression: - Z-line irregular. - Zenkers Diverticulum at the cricopharyngeus s/p Z-POEM. - Clips (MR conditional) were placed. - Endoscopic submucosal dissection was performed. Estimated Blood Loss: Estimated blood loss was minimal. Recommendation: - Admit the [facility]. - NPO today. IVF for maintenance. - Please get water soluble contrast swallow tomorrow to r/o a leak. If no leak, start clear liquid diet, D/C Corpak and D/C home. Advance diet after D/C as follows: Clear liquid diet on days 1-2, full liquids on days 3-4, soft diet on days 5-6, then regular diet. - Return to endoscopist in clinic in 2 weeks. - Patient has a contact number available for emergencies. The signs and symptoms of potential delayed complications were discussed with the patient. Return to normal activities tomorrow. Written discharge instructions were provided to the patient. Procedure Code(s): --- Professional --- [id number] CPT copyright 2020 [employer]. All rights reserved. Attending Participation: I personally performed the entire procedure. Scope In: 8:03:06 AM Scope Out: 8:43:30 AM MD Everett Cash MD 07/16/2023 8:46:39 AM This report has been signed electronically by Everett Escalante MD Number of Addenda: 0 Note Initiated On: 07/16/2023 7:13 AM [facility] 07-09-2023 Miscellaneous Notes GI Pre-Procedure Spoke with patient: Yes Confirmed date scheduled and patient report time: Yes Procedure Planned:Esophagogastroduodenosco py(EGD) for control of bleeding,dilation(any means),imaging,tube placement Esophagogastroduodenoscopy(EGD) with or without biopies based on clinical findings, removal of polyps or lesions Is the patient on blood thinners?no Procedure Instructions given to patient: Yes, and they verbalized their understanding of instructions given Patient instructed to take prescribed preparation prior to procedure:Yes, and they verbalized their understanding of instructions given Patient instructed to have family/friend present for procedure transport home:Patient/patient service representative was told that if they do not have a responsible adult accompany them to their procedure; and remain in the endoscopy area until they are discharged; that their procedure cannot be done with sedation or anesthesia and may be cancelled. and They verbalized their understanding and agree to have a responsible adult accompany the patient to their procedure and remain in the endoscopy area. Any barriers to Patient learning: Patient/Patient Corporate Sales Trainer responded appropriately on phone. Type of instruction given: Verbal by telephone contact. BALBINA Lyon RN documented in this encounter [facility] 04-18-2023 Note HNO ID: [id number] Author: Everett Escalante MD Service: ? Author Type: Physician Type: Progress Notes Filed: 04/18/2023 11:19 AM Note Text: VIRTUAL VISIT PROGRESS NOTE This is a virtual visit using [employer] video visit. It required patient-provider interaction for the medical decision making as documented below. I have communicated my name and active licensure. The patient's identity and physical location were verified at the time of this visit. Either the patient or their legal service representative has been informed of the risks and benefits of -- and alternatives to -- treatment through a remote evaluation and consents to proceed with the evaluation remotely. Robert Salmon is a 67 year old male seen at the request of Dr. 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 HISTORY OF PRESENT ILLNESS: Patient has symptoms of dysphagia for over 6 months. Recent egd revealed it and was confirmed on barium swallow. Zenker Symptom Score. Weight loss (over one year) - 0 none 0; 1-10 lbs (0.45-4.54 kg) 1; 11-20 lbs (4.99-9.07 kg) 2;>20 lbs (>9.07 kg) 3 Dysphagia - 2 none 0; solids 1; semi-solids 2; solid and liquids 3 Oropharyngeal Symptoms - 1 Regurgitation none 0; occasional 1; daily 2 Halitosis - 0 none 0; occasional 1; daily 2 Respiratory Symptoms - 2 Cough none 0; occasional 1; daily 2 Hoarseness - 0 none 0; occasional 1; daily 2 Pneumonia - 0 No 0; Yes 2 TOTAL SCORE: 03/13 Size of Zenkers diverticulum - 3.7cm Duration of symptoms - 6 months Globus sensation - no PRIOR PERTINENT TESTING: Xr Esophagram 03/23/2023 IMPRESSION: -Zenker's diverticulum -Small hiatal hernia. Minimal weblike narrowing GE junction. Findings: There is a large Zenker's diverticulum originating at the level of C4. Dimensions are about 1.8 x 3.4 x 2.4 cm. Swallowing mechanism appears normal. No evidence of a pharyngeal mass. Cervical and thoracic esophagus are unremarkable. There is a small hiatal hernia, with mild weblike narrowing at the GE junction. No delay in passage of the barium pill through the esophagus and across the GE junction. Esophageal motility appeared normal. No reflux was induced with the Valsalva maneuver. EGD 02/27/2023 Impression: - Normal examined jejunum. - Duodenitis. Biopsied. - Gastritis. Biopsied. - A few gastric polyps. Biopsied. - Medium-sized hiatal hernia. - Mildly severe reflux esophagitis with no bleeding. Rule out Luther's esophagus. Biopsied. - Ectopic gastric mucosa in the upper third of the esophagus. - Zenker's diverticulum. Surgical Pathology FINAL DIAGNOSIS A. Stomach, antrum, biopsy: - Gastric antral type mucosa with no pathologic diagnostic abnormality; see comment. B. Duodenum, biopsy: - Duodenal mucosa with no pathologic diagnostic abnormality; negative for celiac disease, granulomas or dysplasia. C. Stomach, polyp, biopsy: - Polypoid gastric oxyntic type mucosa; see comment. D. Esophagus, distal, biopsy: - Squamous and gastric mucosa with no pathologic diagnostic abnormality; negative for intestinal metaplasia or dysplasia. Diagnosis Comment SP LAB A, C. No microorganisms morphologically compatible with H. Pylori are identified on routine DANY stained sections. LABS: No recent labs to review HISTORY REVIEWED (electronic chart updated): PAST MEDICAL HISTORY Diagnosis Date Dysphagia Glaucoma of left eye Inguinal hernia Prostate cancer (HCC) Sleep apnea PAST SURGICAL HISTORY Procedure Laterality Date COLONOSCOPY FLX DX W/COLLJ SPEC WHEN PFRMD 05/17/2021 EGD 02/27/2023 HERNIA REPAIR HX RADICAL PROSTATECTOMY 2020 Dr. Alvarez REPAIR ING HERNIA,5+Y/O,REDUCIBL Left 03/14/2021 RPR 1ST INGUN HRNA AGE 5 YRS/> REDUCIBLE 05/04/2011 SKIN BIOPSY HX FAMILY HISTORY Problem Relation Age of Onset Osteoporosis Mother other (osteoarthritis) Mother Colon Cancer Father Social History Tobacco Use Smoking status: Never Smokeless tobacco: Never Vaping Use Vaping Use: Never used Substance Use Topics Alcohol use: Yes Alcohol/week: 1.0 - 2.0 standard drink Types: 1 - 2 Cans of beer per week Comment: daily Drug use: No Current Outpatient Medications Medication Sig omeprazole (PRILOSEC) 40 mg capsule Take 1 capsule by mouth once daily. bimatoprost (LUMIGAN) 0.03 % ophthalmic drops INSTILL 1 DROP INTO BOTH EYES EVERY NIGHT DIRECTED timoloL maleate (TIMOPTIC) 0.25 % ophthalmic solution multivitamin ORAL tablet Take 1 tablet by mouth. No current facility-administered medications for this visit. ALLERGIES Allergen Reactions Penicillins Unknown REVIEW OF SYSTEMS: GENERAL: feeling well without fatigue, no recent change in weight GI: normal appetite, tolerating PO well, BMs normal, and no abdominal pain PHYSICAL EXAMINATION: VIDEO EXAM: (if completed, performed via video enabled technology) GENERAL: alert and appropriate, in no distress, well-hy (more content not included)... [facility] 04-12-2023 Miscellaneous Notes Attempted to contact patient to schedule virtual visit for a new consult with Dr. Escalante on 04/25 at 10:30 am. ( Referral Dr. Jamie Mc, Neys' diverticulum). Left message for him to return call to office. HUNTER Bailey, RN [facility] documented in this encounter [facility] 04-10-2023 Note HNO ID: [id number] Author: Jamie Mc MD Service: ? Author Type: Physician Type: Progress Notes Filed: 04/10/2023 4:01 PM Note Text: FOLLOW UP VISIT - ENDOSCOPY NAME: Robert Love [facility] NO.: [id number] DATE OF SERVICE: April 10, 2023 : 1955 REFERRING PHYSICIAN: Luiza Riley MD Robert is a patient I am following for dysphagia. The patient is a 67 year old male referred for endoscopy. Robert notes very rare dysphagia to solid foods. He denies significant reflux. A family friend was diagnosed with esophageal cancer and with his noting of occasional dysphagia to solids he is concerned and would like to have upper endoscopy The patient has no current colon complaints Robert has undergone prior endoscopy. I performed colonoscopy on May 17, 2021 for a first-degree history of colon cancer. He was found to have diverticulosis and no other abnormalities and recommended 5-year follow-up colonoscopy The patient is being seen by me at the request of Dr. Luiza Riley MD for my opinion and advice regarding occasional dysphagia. I performed upper endoscopy on February 27, 2023. The patient was found to have : Impression: - Normal examined jejunum. - Duodenitis. Biopsied. - Gastritis. Biopsied. - A few gastric polyps. Biopsied. - Medium-sized hiatal hernia. - Mildly severe reflux esophagitis with no bleeding. Rule out Luther's esophagus. Biopsied. - Ectopic gastric mucosa in the upper third of the esophagus. - Zenker's diverticulum. Pathology demonstrated: FINAL DIAGNOSIS A. Stomach, antrum, biopsy: - Gastric antral type mucosa with no pathologic diagnostic abnormality; see comment. B. Duodenum, biopsy: - Duodenal mucosa with no pathologic diagnostic abnormality; negative for celiac disease, granulomas or dysplasia. C. Stomach, polyp, biopsy: - Polypoid gastric oxyntic type mucosa; see comment. D. Esophagus, distal, biopsy: - Squamous and gastric mucosa with no pathologic diagnostic abnormality; negative for intestinal metaplasia or dysplasia. The patient notes improvement in his complaints since the procedure and starting prilosec. He underwent esophagram that demonstrated: IMPRESSION: Zenker's diverticulum Small hiatal hernia. Minimal weblike narrowing GE junction. Last time discussed surgical and endoscopic options for treatment of his Zenker's diverticulum. He would like to consider endoscopic treatment specifically POEM VITALS: Blood pressure 110/70, pulse 87, temperature 36.4 ?C (97.6 ?F), height 175.3 cm (5' 9 ), weight 80.3 kg (177 lb), SpO2 95 %. On examination, the abdomen is benign. Assessment IMPRESSION: Zenker's diverticulum, Luther's esophagitis, mild to moderate gastritis and esophagitis. PLAN: If the patient notes any problems or changes in bowel function, the patient should contact me immediately. Otherwise I recommend follow up endoscopy in 2-3 years to follow up the clinically visible Luther's esophagitis. I will refer to advanced endoscopy at [facility] [place] for consideration of endoscopic treatment for his Zenker's diverticulum. 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 Jamie Mc MD [facility] 03-06-2023 Note HNO ID: [id number] Author: Jamie Mc MD Service: ? Author Type: Physician Type: Progress Notes Filed: 03/07/2023 6:05 AM Note Text: FOLLOW UP VISIT - ENDOSCOPY NAME: Robert Love [facility] NO.: [id number] DATE OF SERVICE: 03/06/2023 : 1955 REFERRING PHYSICIAN: Luiza Riley MD Robert is a patient I am following for dysphagia. The patient is a 67 year old male referred for endoscopy. Robert notes very rare dysphagia to solid foods. He denies significant reflux. A family friend was diagnosed with esophageal cancer and with his noting of occasional dysphagia to solids he is concerned and would like to have upper endoscopy The patient has no current colon complaints Robert has undergone prior endoscopy. I performed colonoscopy on May 17, 2021 for a first-degree history of colon cancer. He was found to have diverticulosis and no other abnormalities and recommended 5-year follow-up colonoscopy The patient is being seen by me at the request of Dr. Luiza Riley MD for my opinion and advice regarding occasional dysphagia. I performed upper endoscopy on February 27, 2023. The patient was found to have : Impression: - Normal examined jejunum. - Duodenitis. Biopsied. - Gastritis. Biopsied. - A few gastric polyps. Biopsied. - Medium-sized hiatal hernia. - Mildly severe reflux esophagitis with no bleeding. Rule out Luther's esophagus. Biopsied. - Ectopic gastric mucosa in the upper third of the esophagus. - Zenker's diverticulum. Pathology demonstrated: FINAL DIAGNOSIS A. Stomach, antrum, biopsy: - Gastric antral type mucosa with no pathologic diagnostic abnormality; see comment. B. Duodenum, biopsy: - Duodenal mucosa with no pathologic diagnostic abnormality; negative for celiac disease, granulomas or dysplasia. C. Stomach, polyp, biopsy: - Polypoid gastric oxyntic type mucosa; see comment. D. Esophagus, distal, biopsy: - Squamous and gastric mucosa with no pathologic diagnostic abnormality; negative for intestinal metaplasia or dysplasia. The patient notes improvement in his complaints since the procedure and starting prilosec. He is scheduled for an esophagogram laterthis month. VITALS: There were no vitals taken for this visit. On examination, the abdomen is benign. Assessment IMPRESSION: Zenker's diverticulum, Luther's esophagitis, mild to moderate gastritis and esophagitis. PLAN: If the patient notes any problems or changes in bowel function, the patient should contact me immediately. Otherwise I recommend follow up endoscopy in 2-3 years to follow up the clinically visible Luther's esophagitis. We discussed the treatment options for Zenker's Diverticulum. We will connect after his radiology study Diagnoses: (R13.10) Dysphagia, unspecified type (primary encounter diagnosis) Return to Clinic: The patient is instructed to follow-up with me after the testing has been completed. Jamie Mc MD [facility] 03-06-2023 History of Presen t illness Narrative FOLLOW UP VISIT - ENDOSCOPY NAME: Robert Love [facility] NO.: [id number] DATE OF SERVICE: 03/06/2023 : 1955 REFERRING PHYSICIAN: Luiza Riley MD Robert is a patient I am following for dysphagia. The patient is a 67 year old male referred for endoscopy. Robert notes very rare dysphagia to solid foods. He denies significant reflux. A family friend was diagnosed with esophageal cancer and with his noting of occasional dysphagia to solids he is concerned and would like to have upper endoscopy The patient has no current colon complaints Robert has undergone prior endoscopy. I performed colonoscopy on May 17, 2021 for a first-degree history of colon cancer. He was found to have diverticulosis and no other abnormalities and recommended 5-year follow-up colonoscopy The patient is being seen by me at the request of Dr. Luiza Riley MD for my opinion and advice regarding occasional dysphagia. I performed upper endoscopy on February 27, 2023. The patient was found to have : Impression: - Normal examined jejunum. - Duodenitis. Biopsied. - Gastritis. Biopsied. - A few gastric polyps. Biopsied. - Medium-sized hiatal hernia. - Mildly severe reflux esophagitis with no bleeding. Rule out Luther's esophagus. Biopsied. - Ectopic gastric mucosa in the upper third of the esophagus. - Zenker's diverticulum. Pathology demonstrated: FINAL DIAGNOSIS A. Stomach, antrum, biopsy: - Gastric antral type mucosa with no pathologic diagnostic abnormality; see comment. B. Duodenum, biopsy: - Duodenal mucosa with no pathologic diagnostic abnormality; negative for celiac disease, granulomas or dysplasia. C. Stomach, polyp, biopsy: - Polypoid gastric oxyntic type mucosa; see comment. D. Esophagus, distal, biopsy: - Squamous and gastric mucosa with no pathologic diagnostic abnormality; negative for intestinal metaplasia or dysplasia. The patient notes improvement in his complaints since the procedure and starting prilosec. He is scheduled for an esophagogram laterthis month. VITALS: There were no vitals taken for this visit. On examination, the abdomen is benign. Assessment IMPRESSION: Zenker's diverticulum, Luther's esophagitis, mild to moderate gastritis and esophagitis. PLAN: If the patient notes any problems or changes in bowel function, the patient should contact me immediately. Otherwise I recommend follow up endoscopy in 2-3 years to follow up the clinically visible Luther's esophagitis. We discussed the treatment options for Zenker's Diverticulum. We will connect after his radiology study Diagnoses: (R13.10) Dysphagia, unspecified type (primary encounter diagnosis) Return to Clinic: The patient is instructed to follow-up with me after the testing has been completed. Jamie Mc MD documented in this encounter [facility] 02-27-2023 Nurse Note Arrived in phase II via cart. Left lateral position. Sedated, but responds to verbal stimuli. Color normal; skin warm and dry. Respirations wnl and unlabored. Abdomen soft and with + bowel sounds in quads X 4. Patient resting comfortably. Family at bedside. Dr. Jenkins at bedside to review procedure and recommendations. Zonia Pace RN documented in this encounter [facility] 02-27-2023 History and physical note UPDATED PROCEDURAL SEDATION HISTORY AND PHYSICAL EXAMINATION SERVICE DATE: 02/27/2023 SERVICE TIME: 12:55 PM PHYSICAL EXAM MUST BE COMPLETED ON ADMISSION PROCEDURE: Procedure Indications: The History and Physical (completed in the past 30 days) has been reviewed and the patient has been examined. The contents accurately reflect the patient's condition with the following additions or revisions since the H&P was completed. ASA Class: ASA Class:: Patient with mild systemic disease Examination indicates no changes. AIRWAY: Airway Visualization of Uvula: Yes Mouth opening greater than 2 fingerbreadths: Yes Neck Full Range of Motion: Yes LUNGS: Lungs clear to auscultation CARDIAC: Regular rhythm,Regular rate Provisional Diagnosis/Treatment Plan: Dysphagia, GERD SEDATION GOAL: Moderate This H&P can be found in the attached. SIGNATURE: Jamie Mc MD PATIENT NAME: Robert Salmon DATE: February 27, 2023 TIME: 12:55 PM Source Note - Jamie Mc MD - 02/27/2023 11:30 AM EDT Images from the original note were not included. HISTORY AND PHYSICAL Robert Salmon 1955 REFERRING PHYSICIAN: Luiza Riley MD CHIEF COMPLAINT: Consult (EGD consult) HPI: The patient is a 67 year old male referred for endoscopy. Robert notes very rare dysphagia to solid foods. He denies significant reflux. A family friend was diagnosed with esophageal cancer and with his noting of occasional dysphagia to solids he is concerned and would like to have upper endoscopy The patient has no current colon complaints Robert has undergone prior endoscopy. I performed colonoscopy on May 17, 2021 for a first-degree history of colon cancer. He was found to have diverticulosis and no other abnormalities and recommended 5-year follow-up colonoscopy The patient is being seen by me today at the request of Dr. Luiza Riley MD for my opinion and advice regarding occasional dysphagia. PAST MEDICAL HISTORY PAST MEDICAL HISTORY Diagnosis Date Dysphagia Glaucoma of left eye Inguinal hernia Prostate cancer (HCC) Sleep apnea PAST SURGICAL HISTORY PAST SURGICAL HISTORY Procedure Laterality Date COLONOSCOPY FLX DX W/COLLJ SPEC WHEN PFRMD 05/17/2021 HERNIA REPAIR HX RADICAL PROSTATECTOMY 2020 Dr. Alvarez REPAIR ING HERNIA,5+Y/O,REDUCIBL Left 03/14/2021 RPR 1ST INGUN HRNA AGE 5 YRS/> REDUCIBLE 05/04/2011 CURRENT MEDICATIONS Current Outpatient Medications Medication Sig bimatoprost (LUMIGAN) 0.03 % ophthalmic drops INSTILL 1 DROP INTO BOTH EYES EVERY NIGHT DIRECTED timoloL maleate (TIMOPTIC) 0.25 % ophthalmic solution multivitamin ORAL tablet Take 1 tablet by mouth. No current facility-administered medications for this visit. ALLERGIES: Penicillins PERSONAL HISTORY: SOCIAL HISTORY Social History Tobacco Use Smoking status: Never Smokeless tobacco: Never Vaping Use Vaping Use: Never used Substance Use Topics Alcohol use: Yes Alcohol/week: 1.0 - 2.0 standard drink Types: 1 - 2 Cans of beer per week Comment: daily Drug use: No FAMILY HISTORY: FAMILY HISTORY FAMILY HISTORY Problem Relation Age of Onset Osteoporosis Mother other (osteoarthritis) Mother Colon Cancer Father REVIEW OF SYMPTOMS: The review of systems data was entered by the nurse and reviewed by me Nursing Notes: Antoinette Mccoy RN 01/25/2023 11:05 AM Signed REVIEW OF SYSTEMS: General: The patient denies fatigue, denies weight loss, denies weight gain, denies feeling hot, and denies feelings of cold. Eyes: The patient NOTES glaucoma, denies eye injury/surgery, wears glasses or contacts. Ear/Nose/Throat: The patient NOTES allergies, denies hayfever, denies ear infections, and denies bloody noses. Cardiovascular: The patient denies chest pain, denies heart disease, denies high blood pressure,denies cardiac stent, denies prior heart attack, denies irregular heart beat, denies high cholesterol, denies poor circulation, denies heart failure, other cardiac issues, denies claudication, denies cold feet, denies peripheral arterial stent. Respiratory: The patient denies tuberculosis, denies pneumonia, denies frequent cough, denies pulmonary embolism, denies shortness of breath, and denies coughing up blood. Gastrointestinal: The patient NOTES difficulty swallowing, denies acid reflux, denies ulcers, denies vomiting, denies jaundice/hepatitis, denies gallbladder problems, denies black or tarry stools, denies hemorrhoids, denies bleeding from rectum, denies diverticulitis, denies constipation, denies diarrhea, denies loss of stool control, and NOTES hernias. Kidney/Bladder: The patient denies kidney stones, denies urine infections, and denies bloody urine. Skin: The patient denies a history of skin cancer, denies bleeding/changing moles, and denies a history of skin rash. Neurologic: The patient denies a history of epilepsy/convulsions, denies headaches, denies head/spinal injuries, and denies stroke/TIA. Psychiatric: The patient denies psychiatric medications, denies depression, and denies voices, denies substance abuse. Endocrine: The patient denies thyroid disorders, denies diabetes, and denies hormonal problems. Hematologic: The patient denies a history of bruising, denies bleeding, and denies anemia, denies blood clots. Infections: The patient denies a history of measles and mumps, denies rheumatic fever, and denies sexually transmitted diseases. Musculoskeletal: The patient denies back pain/injury, denies back problems, denies sciatica, denies knee/foot trouble, denies arthritis, or denies gout. When was patient's last Mammogram screening? N/A Last Colonoscopy: 2020 Antoinette Mccoy RN PHYSICAL EXAMINATION: General: The patient is 67 year old male, well nourished, well hydrated in no acute distress. The patient is oriented to time, place, and person. VITALS: Blood pressure 128/80, pulse 65, temperature 36.3 C (97.3 F), height 175.3 cm (5' 9 ), weight 82.1 kg (181 lb), SpO2 99 %. Body mass index is 26.73 kg/m . HEENT: Normal cephalic, ataumatic, pupils are equally round, sclera are anicteric, mucous membranes are moist, oropharynx is clear. Neck has no masses, asymmetry or lymphadenopathy. Thyroid is unremarkable. Respiratory: Clear to auscultation and percussion. Normal respiratory excursion and pattern. Cardiac: Examination is regular rate and rhythm. Abdominal exam: Soft, nontender, with no palpable masses. No hepatosplenomegaly. No palpable hernias. Rectal exam: exam deferred Extremities: no clubbing, cyanosis or edema. No adenopathy. Other: LABORATORY VALUES: As Noted RADIOLOGIC STUDIES: As Noted Assessment IMPRESSION: Dysphagia PLAN: I plan to perform upper endoscopy. We discussed the risks and benefits of the planned endoscopy. I have informed the patient that complications can occur including failure to complete the endoscopy and perforation. The patient had the opportunity to ask questions concerning the planned endoscopy. My staff has also explained the procedure to the patient in understandable terms and has given the patient printed material concerning the procedure. The patient freely consents to surgery. Diagnoses: (R13.10) Dysphagia, unspecified type (primary encounter diagnosis) A letter was sent to Dr. Luiza Riley MD indicating the above finding for this patient. Return to Clinic: The patient is instructed to follow-up with me after the testing has been completed. Jamie Mc MD Images from the original note were not included. HISTORY AND PHYSICAL Robert Salmon 1955 REFERRING PHYSICIAN: Luiza Riley MD CHIEF COMPLAINT: Consult (EGD consult) HPI: The patient is a 67 year old male referred for endoscopy. Robert notes very rare dysphagia to solid foods. He denies significant reflux. A family friend was diagnosed with esophageal cancer and with his noting of occasional dysphagia to solids he is concerned and would like to have upper endoscopy The patient has no current colon complaints Robert has undergone prior endoscopy. I performed colonoscopy on May 17, 2021 for a first-degree history of colon cancer. He was found to have diverticulosis and no other abnormalities and recommended 5-year follow-up colonoscopy The patient is being seen by me today at the request of Dr. Luiza Riley MD for my opinion and advice regarding occasional dysphagia. PAST MEDICAL HISTORY PAST MEDICAL HISTORY Diagnosis Date Dysphagia Glaucoma of left eye Inguinal hernia Prostate cancer (HCC) Sleep apnea PAST SURGICAL HISTORY PAST SURGICAL HISTORY Procedure Laterality Date COLONOSCOPY FLX DX W/COLLJ SPEC WHEN PFRMD 05/17/2021 HERNIA REPAIR HX RADICAL PROSTATECTOMY 2020 Dr. Alvarez REPAIR ING HERNIA,5+Y/O,REDUCIBL Left 03/14/2021 RPR 1ST INGUN HRNA AGE 5 YRS/> REDUCIBLE 05/04/2011 CURRENT MEDICATIONS Current Outpatient Medications Medication Sig bimatoprost (LUMIGAN) 0.03 % ophthalmic drops INSTILL 1 DROP INTO BOTH EYES EVERY NIGHT DIRECTED timoloL maleate (TIMOPTIC) 0.25 % ophthalmic solution multivitamin ORAL tablet Take 1 tablet by mouth. No current facility-administered medications for this visit. ALLERGIES: Penicillins PERSONAL HISTORY: SOCIAL HISTORY Social History Tobacco Use Smoking status: Never Smokeless tobacco: Never Vaping Use Vaping Use: Never used Substance Use Topics Alcohol use: Yes Alcohol/week: 1.0 - 2.0 standard drink Types: 1 - 2 Cans of beer per week Comment: daily Drug use: No FAMILY HISTORY: FAMILY HISTORY FAMILY HISTORY Problem Relation Age of Onset Osteoporosis Mother other (osteoarthritis) Mother Colon Cancer Father REVIEW OF SYMPTOMS: The review of systems data was entered by the nurse and reviewed by ak Nursing Notes: Antoinette Mccoy RN 01/25/2023 11:05 AM Signed REVIEW OF SYSTEMS: General: The patient denies fatigue, denies weight loss, denies weight gain, denies feeling hot, and denies feelings of cold. Eyes: The patient NOTES glaucoma, denies eye injury/surgery, wears glasses or contacts. Ear/Nose/Throat: The patient NOTES allergies, denies hayfever, denies ear infections, and denies bloody noses. Cardiovascular: The patient denies chest pain, denies heart disease, denies high blood pressure,denies cardiac stent, denies prior heart attack, denies irregular heart beat, denies high cholesterol, denies poor circulation, denies heart failure, other cardiac issues, denies claudication, denies cold feet, denies peripheral arterial stent. Respiratory: The patient denies tuberculosis, denies pneumonia, denies frequent cough, denies pulmonary embolism, denies shortness of breath, and denies coughing up blood. Gastrointestinal: The patient NOTES difficulty swallowing, denies acid reflux, denies ulcers, denies vomiting, denies jaundice/hepatitis, denies gallbladder problems, denies black or tarry stools, denies hemorrhoids, denies bleeding from rectum, denies diverticulitis, denies constipation, denies diarrhea, denies loss of stool control, and NOTES hernias. Kidney/Bladder: The patient denies kidney stones, denies urine infections, and denies bloody urine. Skin: The patient denies a history of skin cancer, denies bleeding/changing moles, and denies a history of skin rash. Neurologic: The patient denies a history of epilepsy/convulsions, denies headaches, denies head/spinal injuries, and denies stroke/TIA. Psychiatric: The patient denies psychiatric medications, denies depression, and denies voices, denies substance abuse. Endocrine: The patient denies thyroid disorders, denies diabetes, and denies hormonal problems. Hematologic: The patient denies a history of bruising, denies bleeding, and denies anemia, denies blood clots. Infections: The patient denies a history of measles and mumps, denies rheumatic fever, and denies sexually transmitted diseases. Musculoskeletal: The patient denies back pain/injury, denies back problems, denies sciatica, denies knee/foot trouble, denies arthritis, or denies gout. When was patient's last Mammogram screening? N/A Last Colonoscopy: 2020 Antoinette Mccoy RN PHYSICAL EXAMINATION: General: The patient is 67 year old male, well nourished, well hydrated in no acute distress. The patient is oriented to time, place, and person. VITALS: Blood pressure 128/80, pulse 65, temperature 36.3 C (97.3 F), height 175.3 cm (5' 9 ), weight 82.1 kg (181 lb), SpO2 99 %. Body mass index is 26.73 kg/m . HEENT: Normal cephalic, ataumatic, pupils are equally round, sclera are anicteric, mucous membranes are moist, oropharynx is clear. Neck has no masses, asymmetry or lymphadenopathy. Thyroid is unremarkable. Respiratory: Clear to auscultation and percussion. Normal respiratory excursion and pattern. Cardiac: Examination is regular rate and rhythm. Abdominal exam: Soft, nontender, with no palpable masses. No hepatosplenomegaly. No palpable hernias. Rectal exam: exam deferred Extremities: no clubbing, cyanosis or edema. No adenopathy. Other: LABORATORY VALUES: As Noted RADIOLOGIC STUDIES: As Noted Assessment IMPRESSION: Dysphagia PLAN: I plan to perform upper endoscopy. We discussed the risks and benefits of the planned endoscopy. I have informed the patient that complications can occur including failure to complete the endoscopy and perforation. The patient had the opportunity to ask questions concerning the planned endoscopy. My staff has also explained the procedure to the patient in understandable terms and has given the patient printed material concerning the procedure. The patient freely consents to surgery. Diagnoses: (R13.10) Dysphagia, unspecified type (primary encounter diagnosis) A letter was sent to Dr. Luiza Riley MD indicating the above finding for this patient. Return to Clinic: The patient is instructed to follow-up with me after the testing has been completed. Jamie Mc MD documented in this encounter [facility] 01-28-2023 Note HNO ID: [id number] Author: Jamie Mc MD Service: ? Author Type: Physician Type: Progress Notes Filed: 01/28/2023 8:48 AM Note Text: HISTORY AND PHYSICAL Robert Salmon 1955 REFERRING PHYSICIAN: Luiza Riley MD CHIEF COMPLAINT: Consult (EGD consult) HPI: The patient is a 67 year old male referred for endoscopy. Robert notes very rare dysphagia to solid foods. He denies significant reflux. A family friend was diagnosed with esophageal cancer and with his noting of occasional dysphagia to solids he is concerned and would like to have upper endoscopy The patient has no current colon complaints Robert has undergone prior endoscopy. I performed colonoscopy on May 17, 2021 for a first-degree history of colon cancer. He was found to have diverticulosis and no other abnormalities and recommended 5-year follow-up colonoscopy The patient is being seen by me today at the request of Dr. Luiza Riley MD for my opinion and advice regarding occasional dysphagia. PAST MEDICAL HISTORY Diagnosis Date Dysphagia Glaucoma of left eye Inguinal hernia Prostate cancer (HCC) Sleep apnea PAST SURGICAL HISTORY Procedure Laterality Date COLONOSCOPY FLX DX W/COLLJ SPEC WHEN PFRMD 05/17/2021 HERNIA REPAIR HX RADICAL PROSTATECTOMY 2020 Dr. Alvarez REPAIR ING HERNIA,5+Y/O,REDUCIBL Left 03/14/2021 RPR 1ST INGUN HRNA AGE 5 YRS/> REDUCIBLE 05/04/2011 Current Outpatient Medications Medication Sig bimatoprost (LUMIGAN) 0.03 % ophthalmic drops INSTILL 1 DROP INTO BOTH EYES EVERY NIGHT DIRECTED timoloL maleate (TIMOPTIC) 0.25 % ophthalmic solution multivitamin ORAL tablet Take 1 tablet by mouth. No current facility-administered medications for this visit. ALLERGIES: Penicillins PERSONAL HISTORY: Social History Tobacco Use Smoking status: Never Smokeless tobacco: Never Vaping Use Vaping Use: Never used Substance Use Topics Alcohol use: Yes Alcohol/week: 1.0 - 2.0 standard drink Types: 1 - 2 Cans of beer per week Comment: daily Drug use: No FAMILY HISTORY: FAMILY HISTORY Problem Relation Age of Onset Osteoporosis Mother other (osteoarthritis) Mother Colon Cancer Father REVIEW OF SYMPTOMS: The review of systems data was entered by the nurse and reviewed by me Nursing Notes: Antoinette Mccoy RN 01/25/2023 11:05 AM Signed REVIEW OF SYSTEMS: General: The patient denies fatigue, denies weight loss, denies weight gain, denies feeling hot, and denies feelings of cold. Eyes: The patient NOTES glaucoma, denies eye injury/surgery, wears glasses or contacts. Ear/Nose/Throat: The patient NOTES allergies, denies hayfever, denies ear infections, and denies bloody noses. Cardiovascular: The patient denies chest pain, denies heart disease, denies high blood pressure,denies cardiac stent, denies prior heart attack, denies irregular heart beat, denies high cholesterol, denies poor circulation, denies heart failure, other cardiac issues, denies claudication, denies cold feet, denies peripheral arterial stent. Respiratory: The patient denies tuberculosis, denies pneumonia, denies frequent cough, denies pulmonary embolism, denies shortness of breath, and denies coughing up blood. Gastrointestinal: The patient NOTES difficulty swallowing, denies acid reflux, denies ulcers, denies vomiting, denies jaundice/hepatitis, denies gallbladder problems, denies black or tarry stools, denies hemorrhoids, denies bleeding from rectum, denies diverticulitis, denies constipation, denies diarrhea, denies loss of stool control, and NOTES hernias. Kidney/Bladder: The patient denies kidney stones, denies urine infections, and denies bloody urine. Skin: The patient denies a history of skin cancer, denies bleeding/changing moles, and denies a history of skin rash. Neurologic: The patient denies a history of epilepsy/convulsions, denies headaches, denies head/spinal injuries, and denies stroke/TIA. Psychiatric: The patient denies psychiatric medications, denies depression, and denies voices, denies substance abuse. Endocrine: The patient denies thyroid disorders, denies diabetes, and denies hormonal problems. Hematologic: The patient denies a history of bruising, denies bleeding, and denies anemia, denies blood clots. Infections: The patient denies a history of measles and mumps, denies rheumatic fever, and denies sexually transmitted diseases. Musculoskeletal: The patient denies back pain/injury, denies back problems, denies sciatica, denies knee/foot trouble, denies arthritis, or denies gout. When was patient's last Mammogram screening? N/A Last Colonoscopy: 2020 Antoinette Mccoy RN PHYSICAL EXAMINATION: General: The patient is 67 year old male, well nourished, well hydrated in no acute distress. The patient is oriented to time, place, and person. VITALS: Blood pressure 128/80, pulse 65, temperature 36.3 ?C (97.3 ?F), height 175.3 cm (5' 9 ) (more content not included)... [facility] 01-28-2023 History of Presen t illness Narrative HISTORY AND PHYSICAL Robert Salmon 1955 REFERRING PHYSICIAN: Luiza Riley MD CHIEF COMPLAINT: Consult (EGD consult) HPI: The patient is a 67 year old male referred for endoscopy. Robert notes very rare dysphagia to solid foods. He denies significant reflux. A family friend was diagnosed with esophageal cancer and with his noting of occasional dysphagia to solids he is concerned and would like to have upper endoscopy The patient has no current colon complaints Robert has undergone prior endoscopy. I performed colonoscopy on May 17, 2021 for a first-degree history of colon cancer. He was found to have diverticulosis and no other abnormalities and recommended 5-year follow-up colonoscopy The patient is being seen by me today at the request of Dr. Luiza Riley MD for my opinion and advice regarding occasional dysphagia. PAST MEDICAL HISTORY Diagnosis Date Dysphagia Glaucoma of left eye Inguinal hernia Prostate cancer (HCC) Sleep apnea PAST SURGICAL HISTORY Procedure Laterality Date COLONOSCOPY FLX DX W/COLLJ SPEC WHEN PFRMD 05/17/2021 HERNIA REPAIR HX RADICAL PROSTATECTOMY 2020 Dr. Alvarez REPAIR ING HERNIA,5+Y/O,REDUCIBL Left 03/14/2021 RPR 1ST INGUN HRNA AGE 5 YRS/> REDUCIBLE 05/04/2011 Current Outpatient Medications Medication Sig bimatoprost (LUMIGAN) 0.03 % ophthalmic drops INSTILL 1 DROP INTO BOTH EYES EVERY NIGHT DIRECTED timoloL maleate (TIMOPTIC) 0.25 % ophthalmic solution multivitamin ORAL tablet Take 1 tablet by mouth. No current facility-administered medications for this visit. ALLERGIES: Penicillins PERSONAL HISTORY: Social History Tobacco Use Smoking status: Never Smokeless tobacco: Never Vaping Use Vaping Use: Never used Substance Use Topics Alcohol use: Yes Alcohol/week: 1.0 - 2.0 standard drink Types: 1 - 2 Cans of beer per week Comment: daily Drug use: No FAMILY HISTORY: FAMILY HISTORY Problem Relation Age of Onset Osteoporosis Mother other (osteoarthritis) Mother Colon Cancer Father REVIEW OF SYMPTOMS: The review of systems data was entered by the nurse and reviewed by me Nursing Notes: Antoinette Mccoy RN 01/25/2023 11:05 AM Signed REVIEW OF SYSTEMS: General: The patient denies fatigue, denies weight loss, denies weight gain, denies feeling hot, and denies feelings of cold. Eyes: The patient NOTES glaucoma, denies eye injury/surgery, wears glasses or contacts. Ear/Nose/Throat: The patient NOTES allergies, denies hayfever, denies ear infections, and denies bloody noses. Cardiovascular: The patient denies chest pain, denies heart disease, denies high blood pressure,denies cardiac stent, denies prior heart attack, denies irregular heart beat, denies high cholesterol, denies poor circulation, denies heart failure, other cardiac issues, denies claudication, denies cold feet, denies peripheral arterial stent. Respiratory: The patient denies tuberculosis, denies pneumonia, denies frequent cough, denies pulmonary embolism, denies shortness of breath, and denies coughing up blood. Gastrointestinal: The patient NOTES difficulty swallowing, denies acid reflux, denies ulcers, denies vomiting, denies jaundice/hepatitis, denies gallbladder problems, denies black or tarry stools, denies hemorrhoids, denies bleeding from rectum, denies diverticulitis, denies constipation, denies diarrhea, denies loss of stool control, and NOTES hernias. Kidney/Bladder: The patient denies kidney stones, denies urine infections, and denies bloody urine. Skin: The patient denies a history of skin cancer, denies bleeding/changing moles, and denies a history of skin rash. Neurologic: The patient denies a history of epilepsy/convulsions, denies headaches, denies head/spinal injuries, and denies stroke/TIA. Psychiatric: The patient denies psychiatric medications, denies depression, and denies voices, denies substance abuse. Endocrine: The patient denies thyroid disorders, denies diabetes, and denies hormonal problems. Hematologic: The patient denies a history of bruising, denies bleeding, and denies anemia, denies blood clots. Infections: The patient denies a history of measles and mumps, denies rheumatic fever, and denies sexually transmitted diseases. Musculoskeletal: The patient denies back pain/injury, denies back problems, denies sciatica, denies knee/foot trouble, denies arthritis, or denies gout. When was patient's last Mammogram screening? N/A Last Colonoscopy: 2020 Antoinette Mccoy RN PHYSICAL EXAMINATION: General: The patient is 67 year old male, well nourished, well hydrated in no acute distress. The patient is oriented to time, place, and person. VITALS: Blood pressure 128/80, pulse 65, temperature 36.3 C (97.3 F), height 175.3 cm (5' 9 ), weight 82.1 kg (181 lb), SpO2 99 %. Body mass index is 26.73 kg/m . HEENT: Normal cephalic, ataumatic, pupils are equally round, sclera are anicteric, mucous membranes are moist, oropharynx is clear. Neck has no masses, asymmetry or lymphadenopathy. Thyroid is unremarkable. Respiratory: Clear to auscultation and percussion. Normal respiratory excursion and pattern. Cardiac: Examination is regular rate and rhythm. Abdominal exam: Soft, nontender, with no palpable masses. No hepatosplenomegaly. No palpable hernias. Rectal exam: exam deferred Extremities: no clubbing, cyanosis or edema. No adenopathy. Other: LABORATORY VALUES: As Noted RADIOLOGIC STUDIES: As Noted Assessment IMPRESSION: Dysphagia PLAN: I plan to perform upper endoscopy. We discussed the risks and benefits of the planned endoscopy. I have informed the patient that complications can occur including failure to complete the endoscopy and perforation. The patient had the opportunity to ask questions concerning the planned endoscopy. My staff has also explained the procedure to the patient in understandable terms and has given the patient printed material concerning the procedure. The patient freely consents to surgery. Diagnoses: (R13.10) Dysphagia, unspecified type (primary encounter diagnosis) A letter was sent to Dr. Luiza Riley MD indicating the above finding for this patient. Return to Clinic: The patient is instructed to follow-up with me after the testing has been completed. Jamie Mc MD documented in this encounter [facility] 01-25-2023 Nurse Note REVIEW OF SYSTEMS: General: The patient denies fatigue, denies weight loss, denies weight gain, denies feeling hot, and denies feelings of cold. Eyes: The patient NOTES glaucoma, denies eye injury/surgery, wears glasses or contacts. Ear/Nose/Throat: The patient NOTES allergies, denies hayfever, denies ear infections, and denies bloody noses. Cardiovascular: The patient denies chest pain, denies heart disease, denies high blood pressure,denies cardiac stent, denies prior heart attack, denies irregular heart beat, denies high cholesterol, denies poor circulation, denies heart failure, other cardiac issues, denies claudication, denies cold feet, denies peripheral arterial stent. Respiratory: The patient denies tuberculosis, denies pneumonia, denies frequent cough, denies pulmonary embolism, denies shortness of breath, and denies coughing up blood. Gastrointestinal: The patient NOTES difficulty swallowing, denies acid reflux, denies ulcers, denies vomiting, denies jaundice/hepatitis, denies gallbladder problems, denies black or tarry stools, denies hemorrhoids, denies bleeding from rectum, denies diverticulitis, denies constipation, denies diarrhea, denies loss of stool control, and NOTES hernias. Kidney/Bladder: The patient denies kidney stones, denies urine infections, and denies bloody urine. Skin: The patient denies a history of skin cancer, denies bleeding/changing moles, and denies a history of skin rash. Neurologic: The patient denies a history of epilepsy/convulsions, denies headaches, denies head/spinal injuries, and denies stroke/TIA. Psychiatric: The patient denies psychiatric medications, denies depression, and denies voices, denies substance abuse. Endocrine: The patient denies thyroid disorders, denies diabetes, and denies hormonal problems. Hematologic: The patient denies a history of bruising, denies bleeding, and denies anemia, denies blood clots. Infections: The patient denies a history of measles and mumps, denies rheumatic fever, and denies sexually transmitted diseases. Musculoskeletal: The patient denies back pain/injury, denies back problems, denies sciatica, denies knee/foot trouble, denies arthritis, or denies gout. When was patient's last Mammogram screening? N/A Last Colonoscopy: 2020 Antoinette Mccoy RN documented in this encounter [facility] Diagnosis Dysphagia, unspecified type- Primary [facility] Diagnosis Gastroesophageal reflux disease, unspecified whether esophagitis present- Primary Dysphagia, unspecified type documented in this encounter [facility] for referral (narrative)* Outpatient Procedure (Routine) - Authorized Specialty Diagnoses / Procedures Referred By Iza vaca Referred To Contact [facility] Diagnoses Dysphagia, unspecified type Procedures EGD DIAGNOSTIC ESOPHAGOGASTRODUODENOSC OPY TRANSORAL DIAGNOSTIC Jamie Mc MD [address] [place] [address] [facility] [address] [place] [address] Referral ID Status Reason Start Date Expiration Date Visits Requested Visits Authorized [id number] Authorized Auto-Generat ed Referral 01/25/2023 01/26/2024 1 1 [facility] for referral (narrative)* Diagnostic Procedure Only (Routine) - Closed Specialty Diagnoses / Procedures Referred By Iza vaca Referred To Contact [facility] IM[facility] Diagnoses Gastroesophageal reflux disease, unspecified whether esophagitis present Dysphagia, unspecified type Procedures XR ESOPHAGRAM RADIOLOGIC EXAM ESOPHAGUS SINGLE CONTRAST STUDY Jamie Mc MD [address] [place] [address] Xr Imaging [id number] Referral ID Status Reason Start Date Expiration Date V isits Requested Visits Authorized [id number] Closed Auto-Generate d Referral 02/27/2023 03/28/2024 1 1 * Outpatient Procedure (Routine) - Closed Specialty Diagnoses / Procedures Referred By Iza vaca Referred To Contact [facility] Diagnoses Dysphagia, unspecified type Procedures EGD DIAGNOSTIC ESOPHAGOGASTRODUODENOSC OPY TRANSORAL DIAGNOSTIC Jamie Mc MD [address] [facility] [place] [address] [address] Referral ID Status Reason Start Date Expiration Date V isits Requested Visits Authorized [id number] Closed Auto-Generate d Referral 01/25/2023 01/26/2024 1 1 [facility] for visit Narrative* Outpatient Procedure (Routine) - Closed Specialty Diagnoses / Procedures Referred By Iza vaca Referred To Contact [facility] Diagnoses Dysphagia, unspecified type Procedures EGD DIAGNOSTIC ESOPHAGOGASTRODUODENOSC OPY TRANSORAL DIAGNOSTIC Jamie Mc MD [address] [facility] [place] [address] [address] Referral ID Status Reason Start Date Expiration Date V isits Requested Visits Authorized [id number] Closed Auto-Generate d Referral 01/25/2023 01/26/2024 1 1 [facility] Summary Purpose Family History No Family History Records FoundNo Family History Records Found Advance Directives No Advanced Directives Records FoundNo Advanced Directives Records Found Medications Administered Section Inactive Administered Medications - up to 3 most recent administrations Medication Order MAR Action Action Date Dose Rate Site benzocaine 20% 1 [place] (TOPEX) 1 [place], TOPICAL, DIRECTED, Starting on Sun02/27/23 at 1330, Until Sun02/27/23 at 1729, DOSING DIRECTED BY PHYSICIAN FOR PROCEDURAL SEDATION ONLY - Pharmaceutical Waste: Aerosol -, Intraprocedure Given by LIP 02/27/2023 1:10 PM EDT 1 [place] fentaNYL 50 mcg/mL 25-100 mcg injection (SUBLIMAZE) 25-100 mcg, INTRAVENOUS, DIRECTED, Starting on Sun02/27/23 at 1330, Until Sun02/27/23 at 1729, DOSING DIRECTED BY PHYSICIAN FOR PROCEDURAL SEDATION ONLY, Intraprocedure Given by LIP 02/27/2023 1:13 PM EDT 50 mcg Additional Source Comments Source Comments (unrecognize d section and content) In the event this informatio n is protected by the Federal Confidentiality of Alcohol and Drug Abuse Patient Records regulations: The Federal rules restrict any use of the information to criminally investigate or prosecute any alcohol or drug abuse patient.[facility] the event this information is protected by the Federal Confidentiality of Alcohol and Drug Abuse Patient Records regulations: The Federal rules restrict any use of the information to criminally investigate or prosecute any alcohol or drug abuse patient.[facility] TownshipIn the event this information is protected by the Federal Confidentiality of Alcohol and Drug Abuse Patient Records regulations: The Federal rules restrict any use of the information to criminally investigate or prosecute any alcohol or drug abuse patient.[facility] Township[facility] the event this information is protected by the Federal Confidentiality of Alcohol and Drug Abuse Patient Records regulations: The Federal rules restrict any use of the information to criminally investigate or prosecute any alcohol or drug abuse patient.[facility] Township[facility] the event this information is protected by the Federal Confidentiality of Alcohol and Drug Abuse Patient Records regulations: The Federal rules restrict any use of the information to criminally investigate or prosecute any alcohol or drug abuse patient.[facility] TownshipIn the event this information is protected by the Federal Confidentiality of Alcohol and Drug Abuse Patient Records regulations: The Federal rules restrict any use of the information to criminally investigate or prosecute any alcohol or drug abuse patient.[facility] (unrecognized sect ion and content) No Status Records FoundNo Status Records Found INFORMATION SOURCE (unrecogn ized section and content) DATE CREATED AUTHOR AUTHOR'S ORGANIZ ATION 08/12/2023 [facility] Reason for Visit (unrecogniz ed section and content) Reason Comments Follow Up egd Reason Comments Appointment Reason Comments Appointment Confirmation Care Teams (unrecognized sec tion and content) [employer]er Relationship Specialty Start Date End Date Luiza Riley MD [address] [place] [address] PCP - General Internal Medicine 01/19/23 [employer] 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 This clinical summary was aggregated from multiple sources. Caution should be exercised in using it in the provision of clinical care. This summary normalizes information from multiple sources, and as a consequence, information in this document may materially change the coding, format and clinical context of patient data. In addition, data may be omitted in some cases. CLINICAL DECISIONS SHOULD BE BASED ON THE PRIMARY CLINICAL RECORDS. [employer] provides no warranty or guarantee of the accuracy or completeness of information in this document.
[2023-12-24 09:40] LABS: PSA,Total- Diagnostic < 0.01 ng/mL (0.0-4.0)
== END | disposition home or self-care (01) ==
LOC: LAB 08:06
PROVIDERS: PCP Internal Medicine; Referring Provider Urology; Visit Provider Urology
DX: C61 Malignant neoplasm of prostate (principal)
CPT/HCPCS: 36415; 84153

== ENCOUNTER → 2024-01-29 | Outpatient (CLI) | payer MEDICARE, OTHER, SELFPAY ==
[2024-01-29 08:16] LABS: Absolute Neutrophil Count 2.2 X10^3/uL (2.0-7.7); Basophil# 0.05 X10^3/uL; Basophil% 1.2 % (0-1); Eosinophil# 0.31 X10^3/uL; Eosinophils% 7.7 % (0-5); Hematocrit 42.3 % (40-54); Hemoglobin 13.2 g/dL (13.0-16.5); Lymphocyte % 22.3 % (19-41); Mean Corp Hgb Conc 31.2 g/dL (32-36); Mean Corpuscular Hgb 25.2 pg (27.0-32.0); Mean Corpuscular Volume 80.9 fL (80-94); Mean Platelet Vol. 10.2 fl (6.2-12.0); Monocyte# 0.57 X10^3/uL; Monocyte% 14.1 % (0-10); NRBC Flagged by Analyzer 0 % (0-5); Neutrophil % 54.5 % (47-70); Platelet Count 210 K/mm3 (150-450); RBC Distribution Width CV 15.4 % (11.6-14.6); RBC Distribution Width SD 45.1 fl (35.1-43.9); Red Blood Count 5.23 M/mm3 (4.6-6.2)
[2024-01-29 08:49] LABS: AST(SGOT) 24 U/L (15-37); Alanine Aminotransfer ALT/SGPT 27 U/L (16-61); Albumin, Serum 3.5 g/dL (3.2-5.0); Alkaline Phosphatase 64 U/L (45-117); Anion Gap 4 (5-15); BUN 19 mg/dL (7-18); BUN/Creat Ratio 19.1 RATIO (10-20); Calcium,Total 8.8 mg/dL (8.5-10.1); Chloride 107 mmol/L (98-107); Cholesterol 223 mg/dL (200); EST Glomerular Filtration Rate 80 mL/min (>60); Est Glom Filt Rate - Afr Amer 96 mL/min (>60); Globulin 3.5 g/dL (2.2-4.2); Glucose 93 mg/dL (74-106); High Density Lipoprotein 49 mg/dL; Magnesium 2.3 mg/dL (1.6-2.6); Potassium 4.2 mmol/L (3.5-5.1); Sodium Level 139 mmol/L (136-145); Thyroid Stim Hormone (TSH) 1.38 uIU/mL (0.358-3.74); Triglycerides 112 mg/dL; Very Low Density Lipoprotein 22 mg/dL (5-40)
[2024-01-29 09:15] LABS: Vitamin D,25 Hydroxy 32.2 ng/mL
== END | disposition home or self-care (01) ==
LOC: LAB 07:43
PROVIDERS: PCP Internal Medicine; Referring Provider Internal Medicine; Visit Provider Internal Medicine
DX: G47.30 Sleep apnea, unspecified (principal); C61 Malignant neoplasm of prostate; E78.5 Hyperlipidemia, unspecified; E55.9 Vitamin D deficiency, unspecified; Z99.89 Dependence on other enabling machines and devices
CPT/HCPCS: 36415; 80053; 80061; 82306; 83735; 84443; 85025

== ENCOUNTER → 2024-04-30 | Outpatient (CLI) | payer MEDICARE, OTHER, SELFPAY ==
[2024-04-30 09:09] LABS: Absolute Lymphocyte Count 0.86 X10^3/uL (0.83-4.51); Absolute Neutrophil Count 3.8 X10^3/uL (2.0-7.7); Basophil# 0.04 X10^3/uL; Basophil% 0.7 % (0-1); Eosinophil# 0.36 X10^3/uL; Eosinophils% 6.5 % (0-5); Hematocrit 43.3 % (40-54); Hemoglobin 13.1 g/dL (13.0-16.5); Lymphocyte # 0.86 X10^3/ul (0.83-4.51); Lymphocyte % 15.6 % (19-41); Mean Corp Hgb Conc 30.3 g/dL (32-36); Mean Corpuscular Hgb 23.9 pg (27.0-32.0); Mean Corpuscular Volume 79.2 fL (80-94); Mean Platelet Vol. 10.2 fl (6.2-12.0); Monocyte# 0.45 X10^3/uL; Monocyte% 8.2 % (0-10); NRBC Flagged by Analyzer 0 % (0-5); Neutrophil # 3.79 X10^3/uL (2.7-7.7); Neutrophil % 68.6 % (47-70); Platelet Count 216 K/mm3 (150-450); RBC Distribution Width CV 15.5 % (11.6-14.6); RBC Distribution Width SD 43.8 fl (35.1-43.9); Red Blood Count 5.47 M/mm3 (4.6-6.2); White Blood Count 5.5 K/mm3 (4.4-11.0)
== END | disposition home or self-care (01) ==
LOC: LAB 08:18
PROVIDERS: PCP Internal Medicine; Referring Provider Internal Medicine; Visit Provider Internal Medicine
DX: D72.9 Disorder of white blood cells, unspecified (principal)
CPT/HCPCS: 36415; 85025

== ENCOUNTER → 2024-09-22 | Outpatient (CLI) | payer MEDICARE, OTHER, SELFPAY ==
[2024-09-22 09:57] LABS: PSA,Total - Annual Screen < 0.01 ng/mL (0.00-4.00)
== END | disposition home or self-care (01) ==
LOC: LAB 07:50
PROVIDERS: PCP Internal Medicine; Referring Provider Urology; Visit Provider Urology
DX: C61 Malignant neoplasm of prostate (principal)
CPT/HCPCS: 36415; 84153; G0103

== ENCOUNTER → 2025-09-28 | Outpatient (CLI) | payer MEDICARE, OTHER, SELFPAY ==
[2025-09-28 10:11] LABS: PSA,Total- Diagnostic < 0.02 ng/mL (0.00-4.00)
== END | disposition home or self-care (01) ==
LOC: LAB 08:35
PROVIDERS: PCP Internal Medicine; Referring Provider Urology; Visit Provider Urology
DX: C61 Malignant neoplasm of prostate (principal)
CPT/HCPCS: 36415; 84153